=== PATIENT | female | born 1985 | race Caucasian/White ===

== ENCOUNTER → 2016-09-26 | Outpatient (CLI) | payer OTHER ==
[~2016-09-26] MED LIST: CITA40TA12 PO; LISI20TA3 PO; METH10CO PO
--- NOTE | 2016-09-26 14:24 | MAMMOGRAPHY REPORT ---
UNILATERAL LEFT DIGITAL DIAGNOSTIC MAMMOGRAM TOMOSYNTHESIS WITH CAD AND TARGETED LEFT ULTRASOUND: CLINICAL HISTORY: 30-year-old woman with a small palpable lump in the left lower inner quadrant that she noticed a few months ago. Family history of breast cancer = maternal and paternal grandmothers . No skin changes or nipple discharge. TECHNIQUE: Left breast tomosynthesis in addition to standard 2D mammography was performed. Current s nam was also evaluated with a Computer Aided Detection (CAD) system. COMPARISON: No prior exams were available for comparison. BREAST COMPOSITION: The tissue of the left breast is almost entirely fatty. FINDINGS: A triangular skin palpable marker overlies the lower inner middle one third of the left br east, denoting the palpable lump pointed out by the patient. There is a benign intramammary lymph n ode in the upper outer posterior left breast. No suspicious mass, architectural distortion or clust er of microcalcifications is seen. Targeted ultrasound was performed in the area of palpable concern pointed out by the patient (left 7 :00 breast, 4 cm from the nipple). On palpation, there is a discrete pea-sized firm mass. On ultra sound, normal predominantly fatty echotexture tissue is seen without a discrete solid or cystic mass . IMPRESSION: ACR BI-RADS CATEGORY 2: BENIGN, TARGETED ULTRASOUND ACR BI-RADS CATEGORY 2: BENIGN There is no mammographic or targeted sonographic evidence of malignancy. No suspicious mammographic or sonographic Normality is seen in the left 7:00 breast in the area of palpable lump pointed out b y the patient. Therefore, clinical follow-up is recommended, as biopsy of a clinically suspicious m ass should not be precluded by negative imaging. Also recommend annual screening mammography once a ge-appropriate. Approximately 10% of breast cancers are not detected with mammography. A negative mammographic repor t should not delay biopsy if a clinically suggestive mass is present. Darlene Davila M.D. ay/:09/26/2016 13:20:11 [employer] Operator: Darlin Cobian, [facility] letter sent: Normal 1/2 BI-RADS Code: ACR BI-RADS Category 2: Benign Ultrasound BI-RADS: ACR BI-RADS Category 2: Benign
== END | disposition home or self-care (01) ==
LOC: C.MAMM 10:08
PROVIDERS: ATTEND Family Medicine
DX: N63 Unspecified lump in breast (principal)

== ENCOUNTER 2017-06-28 09:42 | Emergency (ER) | payer OTHER ==
[~2017-06-28] VITALS: Ht 167.6 cm; Wt 135.0 kg
[2017-06-28 09:54] VITALS: TEMP 37.2; Ht 167.6 cm; Wt 135.0 kg
[2017-06-28] MEDS ORDERED: KETOROLAC TROMETHAMINE 30 MG/ML VIAL IV STA (10:41)
[2017-06-28 10:51] LABS: BASO % 0.3 %; BASO ABS # 0.02 K/uL (0-0.2); COMPLETE YES; EOS % 2.9 %; HEMATOCRIT 40.6 % (37-47); IG% 0.2 %; LYMPH % 35.2 %; LYMPH ABS # 2.31 K/uL (1.2-3.4); MEAN CELL VOLUME 89.8 fL (80-100); MEAN CORPUSCULAR HEMOGLOBIN 31.2 pg (25-34); MEAN CORPUSCULAR HGB CONC 34.7 g/dl (32-36); MEAN PLATELET VOLUME 10.1 fL (7.4-10.4); MONO % 6.1 %; NEUT % 55.3 %; PLATELET COUNT 195 K/uL (130-400); RED BLOOD COUNT 4.52 M/uL (4.2-5.4); WHITE BLOOD COUNT 6.56 K/uL (4.8-10.8)
[2017-06-28 10:56] LABS: MANUAL MICROSCOPIC REQUIRED? NO; REVIEW REQ? NO; URINE APPEARANCE CLEAR (CLEAR); URINE BILIRUBIN NEG (NEG); URINE COLOR YELLOW; URINE EPITHELIAL CELL AUTO >30 /lpf (0-5); URINE NITRITE NEG (NEG); URINE PH 7.5 (4.5-7.5); URINE SPECIFIC GRAVITY 1.023 (1.000-1.030); UROBILINOGEN NEG (NEG); ZZUR CULT IF INDIC CLEAN CATCH NO
[2017-06-28 11:05] LABS: ALT/SGPT 27 U/L (12-78); BLOOD UREA NITROGEN 10 mg/dl (7-18); BUN/CREATININE RATIO 11.9 (10-20); CALCIUM 8.8 mg/dl (8.5-10.1); CARBON DIOXIDE 28 mmol/L (21-32); CHLORIDE 105 mmol/L (98-107); CREATININE 0.86 mg/dl (0.60-1.20); GLUCOSE 117 mg/dl (70-99); POTASSIUM 4.2 mmol/L (3.5-5.1); SODIUM 138 mmol/L (136-145)
[2017-06-28 11:08] LABS: ALKALINE PHOSPHATASE 78 U/L (45-117); AST/SGOT 16 U/L (15-37)
--- NOTE | 2017-06-28 11:08 | DIAGNOSTIC IMAGING REPORT ---
R RIBS UNILATERAL WITH PA CHEST HISTORY: 31 years-old Female right anterior lateral rib tenderness acute right anterolateral rib pain without injury COMPARISON: Portal chest radiograph 05/03/2016 TECHNIQUE: Frontal view of the chest with 4 views of the right ribs FINDINGS: Cardiac mediastinal and hilar silhouettes are within normal limits. There is no pneumothorax, pleural effusion or focal airspace consolidation. No overt pulmonary edema. Surgical clips of the upper abdomen suggest prior cholecystectomy. No acute rib fracture identified. IMPRESSION: 1. No acute cardiopulmonary process. 2. No acute rib fracture identified. No pneumothorax. The above report was generated using voice recognition software. It may contain grammatical, syntax or spelling errors. Electronically signed by: Senthil Sanchez M.D. 06/28/2017 11:07 AM Dictated Date/Time: 06/28/2017 11:05 AM
[2017-06-28 13:44] VITALS: BP 142/93; PULSE 61; O2SAT 99
--- NOTE | 2017-06-28 17:40 | EMERGENCY ROOM VISIT NOTE ---
History Report prepared by Leandro: Kit Nichole Under the Supervision of: Dr. Álvaro Cassidy M.D. First contact with patient: 10:28 Chief Complaint: ABDOMINAL PAIN Stated Complaint: ABD. PAIN Nursing Triage Summary: Patient states she heard a pop in her right upper abdomen after bending over yesterday and the pain goes around to her back now. States pain increases with movement. Pt c/o nausea with pain. Denies v/d. History of Present Illness The patient is a 31 year old female who presents to the Emergency Room with complaints of constant RUQ abdominal pain beginning yesterday. She states that her pain began suddenly after bending over. She has a history of a cholecystectomy. The patient's pain is worsened with breathing. Her pain wraps around to her back. She describes her pain as "nagging", and occasionally "sharp ". Pt denies LOC, headache, fevers, chills, diaphoresis, visual changes, neck pain, chest pain, breathing difficulties, nausea, vomiting, melena, hematochezia , urinary symptoms, numbness, weakness, lymphadenopathy, rash, or other complaints. She denies chance of . Source of History: patient Onset: Yesterday Position: abdomen (RUQ) Quality: sharp (occasionally), other ("nagging") Timing: constant Modifying Factors (Worsening): breathing Associated Symptoms: + back pain Review of Systems See HPI for pertinent positives and negatives. A total of ten systems were reviewed and were otherwise negative. Past Medical & Surgical Medical Problems: (1) Hepatitis C Surgical Problems: (1) S/P cholecystectomy Family History Cancer Diabetes mellitus FHx: gallbladder disease FHx: lung disease Hypertension Kidney disease Kidney stones Seizures Social History Smoking Status: Current Every Day Smoker Alcohol Use: none Marital Status: in relationship Housing Status: lives with significant other Occupation Status: employed Current/Historical Medications Scheduled Citalopram Hydrobromide (Celexa), 40 MG PO DAILY Lisinopril (Prinivil), 20 MG PO DAILY Methadone Hcl (Methadone Hcl Intensol), 23 MG PO DAILY Allergies Coded Allergies: No Known Allergies (Unverified , 06/28/17) Physical Exam Vital Signs Date Time Temp Pulse Resp B/P (MAP) Pulse Ox O2 Delivery O2 Flow Rate FiO2 06/28/17 13:44 61 20 142/93 99 06/28/17 12:54 64 16 131/83 97 Room Air 06/28/17 11:21 78 06/28/17 11:12 64 17 143/92 96 Room Air 06/28/17 09:54 37.2 74 16 170/108 98 Room Air Physical Exam GENERAL: Awake, alert, well-appearing, in no distress HENT: Normocephalic, atraumatic. Oropharynx unremarkable. EYES: Normal conjunctiva. Sclera non-icteric. NECK: Supple. No nuchal rigidity. FROM. No JVD. RESPIRATORY: Clear to auscultation. CARDIAC: Regular rate, normal rhythm. Extremities warm and well perfused. Pulses equal. ABDOMEN: Soft, non-distended. No tenderness to palpation. No rebound or guarding. No masses. RECTAL: Deferred. MUSCULOSKELETAL: Chest examination reveals right posterior lateral rib and right anterior costal margin tenderness to palpation. The back is symmetrical on inspection without obvious abnormality. There is no CVA tenderness to palpation. No joint edema. LOWER EXTREMITIES: Calves are equal size bilaterally and non-tender. No edema. No discoloration. NEURO: Normal sensorium. No sensory or motor deficits noted. SKIN: No rash or jaundice noted. Medical Decision & Procedures ER Provider Diagnostic Interpretation: X-ray: Per my interpretation, radiologist review. R RIBS UNILATERAL WITH PA CHEST FINDINGS: Cardiac mediastinal and hilar silhouettes are within normal limits. There is no pneumothorax, pleural effusion or focal airspace consolidation. No overt pulmonary edema. Surgical clips of the upper abdomen suggest prior cholecystectomy. No acute rib fracture identified. IMPRESSION: 1. No acute cardiopulmonary process. 2. No acute rib fracture identified. No pneumothorax. The above report was generated using voice recognition software. It may contain grammatical, syntax or spelling errors. Electronically signed by: Senthil Sanchez M.D. 06/28/2017 11:07 AM Laboratory Results 06/28/17 10:35 Red Blood Count 4.52, Mean Corpuscular Volume 89.8, Mean Corpuscular Hemoglobin 31.2, Mean Corpuscular Hemoglobin Concent 34.7, Mean Platelet Volume 10.1, Neutrophils (%) (Auto) 55.3, Lymphocytes (%) (Auto) 35.2, Monocytes (%) (Auto) 6.1, Eosinophils (%) (Auto) 2.9, Basophils (%) (Auto) 0.3, Neutrophils # (Auto) 3.63, Lymphocytes # (Auto) 2.31, Monocytes # (Auto) 0.40, Eosinophils # (Auto) 0.19, Basophils # (Auto) 0.02 06/28/17 10:35 Test 06/28/17 10:17 06/28/17 10:35 Urine Color YELLOW Urine Appearance CLEAR (CLEAR) Urine pH 7.5 (4.5-7.5) Urine Specific [place] 1.023 (1.000-1.030) Urine Protein NEG (NEG) Urine Glucose (UA) NEG (NEG) Urine Ketones NEG (NEG) Urine Occult Blood NEG (NEG) Urine Nitrite NEG (NEG) Urine Bilirubin NEG (NEG) Urine Urobilinogen NEG (NEG) Urine Leukocyte Esterase TRACE (NEG) Urine WBC (Auto) 5-10 /hpf (0-5) Urine RBC (Auto) 0-4 /hpf (0-4) Urine Hyaline Casts (Auto) 1-5 /lpf (0-5) Urine Epithelial Cells (Auto) >30 /lpf (0-5) Urine Bacteria (Auto) NEG (NEG) Urine Test NEG (NEG) White Blood Count 6.56 K/uL (4.8-10.8) Red Blood Count 4.52 M/uL (4.2-5.4) Hemoglobin 14.1 g/dL (12.0-16.0) Hematocrit 40.6 % (37-47) Mean Corpuscular Volume 89.8 fL (80-100) Mean Corpuscular Hemoglobin 31.2 pg (25-34) Mean Corpuscular Hemoglobin Concent 34.7 g/dl (32-36) Platelet Count 195 K/uL (130-400) Mean Platelet Volume 10.1 fL (7.4-10.4) Neutrophils (%) (Auto) 55.3 % Lymphocytes (%) (Auto) 35.2 % Monocytes (%) (Auto) 6.1 % Eosinophils (%) (Auto) 2.9 % Basophils (%) (Auto) 0.3 % Neutrophils # (Auto) 3.63 K/uL (1.4-6.5) Lymphocytes # (Auto) 2.31 K/uL (1.2-3.4) Monocytes # (Auto) 0.40 K/uL (0.11-0.59) Eosinophils # (Auto) 0.19 K/uL (0-0.5) Basophils # (Auto) 0.02 K/uL (0-0.2) RDW Standard Deviation 40.5 fL (36.4-46.3) RDW Coefficient of Variation 12.3 % (11.5-14.5) Immature Granulocyte % (Auto) 0.2 % Immature Granulocyte # (Auto) 0.01 K/uL (0.00-0.02) Anion Gap 4.0 mmol/L (3-11) Est Creatinine Clear Calc Drug Dose 134.0 ml/min Estimated GFR () 104.3 Estimated GFR (Non- 90.0 BUN/Creatinine Ratio 11.9 (10-20) Calcium Level 8.8 mg/dl (8.5-10.1) Total Bilirubin 0.3 mg/dl (0.2-1) Direct Bilirubin < 0.1 mg/dl (0-0.2) Aspartate Amino Transf (AST/SGOT) 16 U/L (15-37) Alanine Aminotransferase (ALT/SGPT) 27 U/L (12-78) Alkaline Phosphatase 78 U/L (45-117) Total Protein 7.3 gm/dl (6.4-8.2) Albumin 3.6 gm/dl (3.4-5.0) Lipase 137 U/L (73-393) Laboratory results reviewed by me Medications Administered Medications (Trade) Dose Ordered Sig/Deion Route Start Time Stop Time Status Last Admin Dose Admin Ketorolac Tromethamine (Toradol Inj) 15 mg NOW STAT IV 06/28/17 10:41 06/28/17 10:42 DC 06/28/17 11:10 15 MG ED Course 1036: The patient was evaluated in room A4B. A complete history and physical exam was performed. 1041: Ordered Toradol Inj 15 mg IV. 1322: I reevaluated the patient. Discussed results and discharge instructions: she verbalized understanding and agreement. The patient is ready for discharge. Medical Decision Triage Nursing notes reviewed. The patient's presentation and history were concerning for right anterolateral rib and right upper quadrant pain Etiologies such as rib fracture, rib contusion, gastrointestinal, musculoskeletal, pulmonary embolism, pneumonia, pneumothorax, infections, cardiac ischemia, aortic dissection, as well as others were entertained. The patient was evaluated. Clinical she was doing well. Her symptoms were reproducible. This seems very musculoskeletal as she bent over and felt a pop in the right anterolateral ribs. Vital signs stable. She can take a deep breath well. X-ray imaging was performed. No obvious rib fracture or underlying lung issue was noted. She had a benign abdominal examination. She has a prior cholecystectomy. I discussed conservative management with the patient and she felt very comfortable. She worsens in any way she will be back. By the evaluation outlined above other emergent etiologies such as those listed in the differential, as well as others, were deemed relatively unlikely. The patient was educated about the findings as listed above. All questions were answered and the patient was pleased with the treatment. Return instructions were outlined and the patient was discharged in stable condition. The patient was referred to her PCP for follow-up for a recheck of the current condition. Medication Reconcilliation Current Medication List: was personally reviewed by me Blood Pressure Screening Patient's blood pressure: Elevated blood pressure Blood pressure disposition: Referred to PCP Impression Primary Impression: Rib pain on right side Scribe Attestation The scribe's documentation has been prepared under my direction and personally reviewed by me in its entirety. I confirm that the note above accurately reflects all work, treatment, procedures, and medical decision making performed by me. Departure Information Dispostion Home / Self-Care Referrals Elisa Solis MD (PCP) Forms Call Back Authorization, HOME CARE DOCUMENTATION FORM, IMPORTANT VISIT INFORMATION Patient Instructions [facility] Additional Instructions Ibuprofen(Motrin, Advil) may be used for fever or pain. Use 600mg every six hours as needed. Take with food. Avoid using more than 2400mg in a 24 hour period. Do not use 2400mg per day for more than three consecutive days without physician direction. Prolonged inappropriate use can lead to stomach upset or ulcers. (AND/OR) Acetaminophen(Tylenol) may be used for fever or pain. Use 1000mg every six hours as needed. Avoid using more than 4000mg in a 24 hour period. Rest and drink plenty of fluids as tolerated. Avoid heavy lifting or anything that worsens the pain. Continue current medications. Return to the ER immediately for worsening or persistent rib pain, abdominal pain, vomiting, fevers, chest pains, difficulty breathing, black or bloody stools, worsening of your condition, or as needed. Follow up with your primary physician in 2-3 days for a recheck of your current condition.
== END 2017-06-28 13:46 | disposition home or self-care (01) ==
LOC: C.EDB 09:43 → C.EDA 13:46
DX: R07.81 Pleurodynia (principal); R10.11 Right upper quadrant pain; F17.210 Nicotine dependence, cigarettes, uncomplicated

== ENCOUNTER 2023-01-16 10:18 | Inpatient (IN) ==
--- NOTE | 2023-01-16 10:52 | XRay Report ---
SINGLE VIEW CHEST CLINICAL HISTORY: Dyspnea FINDINGS: An AP, portable, upright chest radiograph is compared to study dated 06/28/2017. The examin ation is degraded by portable technique, large body habitus, and apical lordotic positioning. The car diomediastinal silhouette is unremarkable. The lungs and pleural spaces are clear. No pneumothorax is seen. The bony thorax is grossly intact. IMPRESSION: No active disease in the chest. ACT 112: Negative or not required by law. Electronically signed by: Kaleb Gordon M.D. 01/16/2023 10:51 AM
[2023-01-16] MEDS ORDERED: methylPREDNISolone 125 MG/2 ML VIAL IV STA (11:02)
[2023-01-16] MEDS ORDERED: ALBUT/IPRATROP 3MG/0.5MG NEB 3 ML VIAL NEB STA (11:02)
--- NOTE | 2023-01-16 11:12 | Emergency Department Note ---
Impression & Plan SOB (shortness of breath), Pulmonary emboli, Wheezing, Heart murmur ED Provider Note NAME: KEE LOPEZ AGE: 37 SEX: F : 1985 ARRIVES VIA: Ambulance INFORMANT: [Patient] ED PROVIDER(S): [Kaleb Avendano MD] CHIEF COMPLAINT: Shortness of breath HISTORY OF PRESENT ILLNESS: The patient is a 37-year-old female whose had 4 days of some flulike symptoms and cough. She has felt somewhat short of breath. She had a runny nose, headache and some tightness in her chest. Last evening, she developed some pain on the left side of her chest near the breast that radiates to the back. It is pleuritic in nature. Patient was given a nebulizer treatment by EMS, this did make her feel somewhat better. The patient had a fever yesterday, none today. No known sick contacts. No history of lung disease. No history of previous PE or DVT, no history of this diagnosis in her family. She has not had a long trip by car plane or train. PMHx/PSHx: See Below SOCIAL HISTORY: See Below. PHYSICAL EXAM: GENERAL: Patient is in no acute distress. HEENT: No acute trauma, normocephalic atraumatic, mucous membranes moist, no nasal congestion. NECK: No stridor, no adenopathy, no meningismus, trachea is midline. LUNGS: Diminished breath sounds with wheezing bilaterally, no obvious respiratory distress, no crackles. HEART: 2/6 systolic murmur, regular rate and rhythm. ABDOMEN: Soft, nontender, bowel sounds positive, no peritonitis. EXTREMITIES: No cyanosis, mild bilateral pedal edema, full range of motion of all the joints without pain or difficulty, no signs for acute trauma. NEUROLOGIC: Oriented x 3, no acute motor or sensory deficits, no focal weakness. SKIN: No rash, no jaundice, no diaphoresis. DIFFERENTIAL DIAGNOSIS: Bronchitis or pneumonia, pneumothorax, SC, musculoskeletal pain, pleurisy, PE, aortic dissection, among others. EMERGENCY DEPARTMENT COURSE/PROCEDURES: Prior/Outside records reviewed: EMS notes. ECG per my interpretation: Indication was chest pain. The ECG shows a normal sinus rhythm with a rate of 88. There is some baseline artifact. No ST elevation, no PVCs. The QTc is 425. Continuous Cardiac Monitoring per my interpretation: An order was placed for continuous cardiac monitoring. The monitor shows a rate of 89 with normal sinus rhythm. Critical Care Note: I have personally spent 45 minutes of critical care time in the direct management of this patient. This includes bedside care, interpretation of diagnostic studies, and testing, discussion with consultants, patient, and family members, and other required patient management activities. This 45 minutes is in excess of all separately billable procedures. MEDICAL DECISION MAKING: There is no leukocytosis or concerning anemia. There is a normal platelet count. No coagulopathy. D-dimer was elevated making PE more likely. No renal failure or significant electrolyte abnormality. No concerning liver enzyme elevation. ECG shows a normal sinus rhythm, no ischemia or dysrhythmia. Cardiac enzyme testing x1 is not consistent with acute cardiac injury. COVID test returned negative. Chest x-ray per my review did not show pneumonia or pneumothorax, I did not see any CHF. Chest CT shows multiple bilateral pulmonary emboli with some heart strain. On exam, the patient had diminished breath sounds with a cardiac murmur. She was wheezing. The patient received a DuoNeb, she was given IV Solu-Medrol. With the findings of PE, she was given an IV heparin bolus and placed on a heparin drip. I spoke to the patient about her findings, given the CT results, given the cardiac strain noted, I do think hospitalization is warranted. I spoke with the patient and case management, the on-call hospitalist was consulted. DISPOSITION: The patient's findings warrant a hospital stay. Past Med/Surg History Medical History Bipolar disorder Depression Hepatitis C Hypertension Surgical History (Updated 02/23/19 @ 15:20 by Gilbert Gaxiola) History of cholecystectomy History of tonsillectomy Family History (Updated 02/23/19 @ 15:22 by Gilbert Gaxiola) Mother Cardiac disorder Depression Diabetes Hypertension Kidney disease Lung disease Father Diabetes Kidney stones Grandmother Breast cancer Uterus cancer Other No pertinent family history Prostate cancer Denies family history of Ovarian cancer Myocardial infarction Colorectal cancer Social History Smoking Status: Current every day smoker Age Started Using Tobacco: 16; packs per day: 1; Second Hand Exposure: Yes; Hx Alcohol Use: Yes Hx Substance Use: Yes (Suboxone) Last Used Substance Other:: quit 2011 Preferred Language: [place] Communication Ability: Effective Visual Impairment: No Limitations Hearing Ability: Normal marital status: Single Current Living Situation Comment: with parents and fiance current occupational status: employed 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 Feels Safe at Home: Yes Dental Care, Regularly: Yes Physical Activity Frequency: Daily Seatbelt Use: always Allergies Allergies Allergy/AdvReac Type Severity Reaction Status Date / Time naloxone AdvReac Ligjht Verified 01/16/23 14:18 headed, gi-upset Home Meds Home Medications Medication Instructions Recorded Confirmed Mucinex Tab 1 tab PO Q4 PRN Congestion 01/16/23 01/16/23 buprenorphine HCl 8 mg sublingual 2 mg sublingual QID 01/16/23 01/16/23 tablet lisinopril 10 mg tablet 10 mg PO DAILY 01/16/23 01/16/23 Results & Data (ED) Vital Signs Vital Signs - 24 hr 01/16/23 10:33 01/16/23 10:33 01/16/23 10:47 Temperature 37.0 C Temperature Source Oral Pulse Rate Pulse Rate [Left] Pulse Rate from SpO2 Sensor Respiratory Rate Respiratory Effort / Characteristics Respiratory Depth Normal Respiratory Pattern Regular Blood Pressure Blood Pressure [Right Arm] Blood Pressure Mean Blood Pressure Mean [Right Arm] Blood Pressure Position [Right Arm] Pulse Oximetry 98 Oxygen Delivery Method Room Air Sepsis Recent Fever Within 48 Hours Yes Sepsis New/Unexplained Change in Mental Status No Sepsis Action Taken by Nursing No Action Required 01/16/23 10:51 01/16/23 10:29 01/16/23 11:00 Temperature Temperature Source Pulse Rate 81 Pulse Rate [Left] 81 Pulse Rate from SpO2 Sensor 82 Respiratory Rate 22 17 Respiratory Effort / Characteristics Non-Labored Respiratory Depth Normal Respiratory Pattern Regular Blood Pressure 166/93 H Blood Pressure [Right Arm] 152/103 H Blood Pressure Mean 117 Blood Pressure Mean [Right Arm] 119 Blood Pressure Position [Right Arm] Lying Pulse Oximetry 98 98 98 Oxygen Delivery Method Room Air Room Air Room Air Sepsis Recent Fever Within 48 Hours Sepsis New/Unexplained Change in Mental Status Sepsis Action Taken by Nursing 01/16/23 11:30 01/16/23 11:46 01/16/23 12:00 Temperature Temperature Source Pulse Rate 77 77 79 Pulse Rate [Left] Pulse Rate from SpO2 Sensor 77 Respiratory Rate 17 17 Respiratory Effort / Characteristics Respiratory Depth Respiratory Pattern Blood Pressure 134/69 140/71 Blood Pressure [Right Arm] Blood Pressure Mean 90 94 Blood Pressure Mean [Right Arm] Blood Pressure Position [Right Arm] Pulse Oximetry 98 94 Oxygen Delivery Method Room Air Room Air Sepsis Recent Fever Within 48 Hours Sepsis New/Unexplained Change in Mental Status Sepsis Action Taken by Nursing 01/16/23 12:30 Temperature Temperature Source Pulse Rate 76 Pulse Rate [Left] Pulse Rate from SpO2 Sensor 76 Respiratory Rate 17 Respiratory Effort / Characteristics Respiratory Depth Respiratory Pattern Blood Pressure 137/76 Blood Pressure [Right Arm] Blood Pressure Mean 96 Blood Pressure Mean [Right Arm] Blood Pressure Position [Right Arm] Pulse Oximetry 92 Oxygen Delivery Method Room Air Sepsis Recent Fever Within 48 Hours Sepsis New/Unexplained Change in Mental Status Sepsis Action Taken by Long Term Medications Current Medication List: was personally reviewed by me Laboratory Data Attestation: I reviewed the patient's lab results. 01/16/23 11:11 01/16/23 11:11 Lab Results 01/16/23 01/16/23 01/16/23 Range/Units 11:11 11:11 11:11 WBC 8.98 (4.8-10.8) K/ul RBC 4.58 (4.20-5.40) M/uL Hgb 14.3 (12.0-16.0) g/dl Hct 40.8 (37.0-47.0) % MCV 89.1 (80.0-100.0) fL MCH 31.2 (25.0-34.0) pg MCHC 35.0 (32.0-36.0) g/dL RDW Std Deviation 38.6 (36.4-46.3) fL RDW Coeff of Rigo 12.0 (11.5-14.5) % Plt Count 143 (130-400) K/uL MPV 10.6 (9.4-12.4) fL Immature Gran % (Auto) 0.6 % Neut % (Auto) 80.9 % Lymph % (Auto) 11.7 % [place] % (Auto) 5.6 % Eos % (Auto) 0.9 % Baso % (Auto) 0.3 % Neut # (Auto) 7.27 H (1.40-6.50) K/uL Lymph # (Auto) 1.05 L (1.2-3.4) K/uL [place] # (Auto) 0.50 (0.11-0.59) K/uL Eos # (Auto) 0.08 (0-0.50) K/uL Baso # (Auto) 0.03 (0-0.2) K/uL Immature Gran # (Auto) 0.05 (0.01-0.20) K/uL PT (9.0-12.0) Seconds INR (0.9-1.1) APTT (21.0-31.0) Seconds PTT Ratio D-Dimer 3130 H* (0-500) ug/L FEU Sodium 135 L (136-145) mmol/L Potassium 4.2 (3.5-5.1) mmol/L Chloride 104 (98-107) mmol/L Carbon Dioxide 22 (21-32) mmol/L Anion Gap 9 (3-11) BUN 11 (6-23) mg/dl Creatinine 0.69 (0.6-1.2) mg/dl Est Cr Clr Drug Dosing 164.1 ml/min Est GFR ( Amer) 128.9 ml/min Est GFR (Non-Af Amer) 111.2 ml/min BUN/Creatinine Ratio 15.9 (10-20) Glucose 126 H (70-99(Fasting)) mg/dl Calcium 9.1 (8.6-10.3) mg/dl Total Bilirubin 0.8 (0.2-1.0) mg/dl AST 13 (13-39) U/L ALT 15 (7-52) U/L Alkaline Phosphatase 83 (34-104) U/L Troponin I High Sens (0-14) pg/ml Total Protein 7.9 (6.0-8.3) gm/dl Albumin 4.4 (3.4-5.0) gm/dl Globulin 3.5 (2.5-4.0) gm/dl Albumin/Globulin Ratio 1.3 (0.9-2) SARS-CoV-2 (PCR) (Negative) 01/16/23 01/16/23 01/16/23 Range/Units 11:11 11:11 Unknown WBC (4.8-10.8) K/ul RBC (4.20-5.40) M/uL Hgb (12.0-16.0) g/dl Hct (37.0-47.0) % MCV (80.0-100.0) fL MCH (25.0-34.0) pg MCHC (32.0-36.0) g/dL RDW Std Deviation (36.4-46.3) fL RDW Coeff of Rigo (11.5-14.5) % Plt Count (130-400) K/uL MPV (9.4-12.4) fL Immature Gran % (Auto) % Neut % (Auto) % Lymph % (Auto) % [place] % (Auto) % Eos % (Auto) % Baso % (Auto) % Neut # (Auto) (1.40-6.50) K/uL Lymph # (Auto) (1.2-3.4) K/uL [place] # (Auto) (0.11-0.59) K/uL Eos # (Auto) (0-0.50) K/uL Baso # (Auto) (0-0.2) K/uL Immature Gran # (Auto) (0.01-0.20) K/uL PT 10.6 (9.0-12.0) Seconds INR 1.0 (0.9-1.1) APTT 26.0 (21.0-31.0) Seconds PTT Ratio 0.9 D-Dimer (0-500) ug/L FEU Sodium (136-145) mmol/L Potassium (3.5-5.1) mmol/L Chloride (98-107) mmol/L Carbon Dioxide (21-32) mmol/L Anion Gap (3-11) BUN (6-23) mg/dl Creatinine (0.6-1.2) mg/dl Est Cr Clr Drug Dosing ml/min Est GFR ( Amer) ml/min Est GFR (Non-Af Amer) ml/min BUN/Creatinine Ratio (10-20) Glucose (70-99(Fasting)) mg/dl Calcium (8.6-10.3) mg/dl Total Bilirubin (0.2-1.0) mg/dl AST (13-39) U/L ALT (7-52) U/L Alkaline Phosphatase (34-104) U/L Troponin I High Sens < 2.3 (0-14) pg/ml Total Protein (6.0-8.3) gm/dl Albumin (3.4-5.0) gm/dl Globulin (2.5-4.0) gm/dl Albumin/Globulin Ratio (0.9-2) SARS-CoV-2 (PCR) NEGATIVE (Negative) Administered Medications Heparin Sodium/Dextrose (Heparin Sodium/Dextrose) 25,000 units in 500 mls @ 20 mls/hr IV .Q24H RUPA; Protocol Stop: 02/15/23 13:44 Last Admin: 01/16/23 14:01 Dose: 1,000 units/hr, 20 mls/hr Documented By: TERESA Co-signed By: MURRAY Discontinued Medications Albuterol (Albut/Ipratrop 3mg/0.5mg Neb 3 Ml Vial) 3 ml NEB NOW STA; Protocol Stop: 01/16/23 11:03 Last Admin: 01/16/23 11:15 Dose: 3 ml Documented By: LOU Heparin Sodium (Porcine) (Heparin Sod (Porcine) 1000 Unit/Ml) 4,000 units IV NOW ONE Stop: 01/16/23 14:01 Last Admin: 01/16/23 14:01 Dose: 4,000 units Documented By: TERESA Co-signed By: MURRAY Ioversol (Optiray 320 500ml) 114 ml IV ONCE ONE Stop: 01/16/23 13:00 Last Admin: 01/16/23 12:53 Dose: 114 ml Documented By: JANET Methylprednisolone (Methylprednisolone 125 Mg/2 Ml Vial) 60 mg IV NOW STA Stop: 01/16/23 11:03 Last Admin: 01/16/23 11:15 Dose: 60 mg Documented By: LOU Imaging Data Radiologist's Impression: Chest X-Ray 01/16/23 10:29 SINGLE VIEW CHEST CLINICAL HISTORY: Dyspnea FINDINGS: An AP, portable, upright chest radiograph is compared to study dated 06/28/2017. The examination is degraded by portable technique, large body habitus, and apical lordotic positioning. The cardiomediastinal silhouette is unremarkable. The lungs and pleural spaces are clear. No pneumothorax is seen. The bony thorax is grossly intact. IMPRESSION: No active disease in the chest. ACT 112: Negative or not required by law. Electronically signed by: Kaleb Gordon M.D. 01/16/2023 10:51 AM Chest CTA 01/16/23 12:24 CT angio chest PE protocol CLINICAL HISTORY: PE TECHNIQUE: Multidetector row helical CT of the chest was performed with angiographic protocol. Coronal and sagittal reformations were obtained. Coronal and sagittal MIPS were obtained from the axial data set and were submitted for review. Automated dose lowering techniques and/or adjustment according to patient size were utilized for this exam. CT DOSE: 871.91 mGy.cm Comparison: None available at the time of this dictation. FINDINGS: Lungs and pleura: Atelectasis is in the left lower lung. There is a 4 mm nodule in the right upper lobe (series 4 image 137) Heart and pericardium: There is flattening of the interventricular septum and prominence of the right ventricle. Vessels: Numerous segmental and subsegmental pulmonary emboli are seen most prominently in the right lower lobe with involvement of the right upper and left lower lobes as well. Pulmonary trunk measures 36 mm in diameter. Mediastinum and vika: Unremarkable. Chest wall and lower neck: Unremarkable. Abdomen: Unremarkable. Bones: Degenerative changes in the thoracic spine. IMPRESSION: Multiple segmental and subsegmental pulmonary emboli are seen with pulmonary hypertension and suggestion of right heart strain. ACT 112: Negative or not required by law. Electronically signed by: Uday Pino M.D. 01/16/2023 1:10 PM Discharge Plan Visit Data Chief Complaint: Shortness of Breath/Dyspnea Stated Complaint: FLANK PAIN, SOB ED Provider: Kaleb Avendano Discharge Problem: SOB (shortness of breath), Pulmonary emboli, Wheezing, Heart murmur Patient Disposition: Admitted As Inpatient Condition: Fair Forms [facility] Prescriptions Prescriptions: No Action lisinopril 10 mg Tablet 10 mg PO DAILY buprenorphine HCl 8 mg tablet, sublingual 2 mg SUBLINGUAL QID Rx Instructions: Quarters the tablet Mucinex Tab 1 tab PO Q4 PRN (Reason: Congestion) Referrals Referrals: [facility]rell[email or web address] [Outside Practitioners] -
[2023-01-16 11:54] LABS: Basophils # (auto) 0.03 K/uL (0-0.2); Basophils % (auto) 0.3 %; Eosinophils # (auto) 0.08 K/uL (0-0.50); Eosinophils % (auto) 0.9 %; Hematocrit (blood only) 40.8 % (37.0-47.0); Hemoglobin 14.3 g/dl (12.0-16.0); Immature Granulocytes # (auto) 0.05 K/uL (0.01-0.20); Immature Granulocytes % (auto) 0.6 %; Lymphocytes # (auto) 1.05 K/uL (1.2-3.4); Lymphocytes % (auto) 11.7 %; Mean Corpuscular Hemoglobin 31.2 pg (25.0-34.0); Mean Corpuscular Volume 89.1 fL (80.0-100.0); Mean Platelet Volume 10.6 fL (9.4-12.4); Monocytes % (auto) 5.6 %; Neutrophils # (auto) 7.27 K/uL (1.40-6.50); Neutrophils % (auto) 80.9 %; Platelet Count 143 K/uL (130-400); RDW Standard Deviation 38.6 fL (36.4-46.3); Red Blood Count 4.58 M/uL (4.20-5.40); White Blood Count 8.98 K/ul (4.8-10.8)
[2023-01-16 12:16] LABS: D Dimer 3130 ug/L FEU (0-500)
[2023-01-16 12:19] LABS: Albumin Level 4.4 gm/dl (3.4-5.0); Bilirubin,Total 0.8 mg/dl (0.2-1.0); Calcium 9.1 mg/dl (8.6-10.3); Potassium 4.2 mmol/L (3.5-5.1)
[2023-01-16 12:25] LABS: Albumin Globulin Ratio 1.3 (0.9-2); BUN Creatinine Ratio 15.9 (10-20); Creatinine Clr Calc Pharmacy 164.1 ml/min; Est GFR (African American) 128.9 ml/min; Est GFR (Non-African American) 111.2 ml/min; Globulin 3.5 gm/dl (2.5-4.0); Total Protein 7.9 gm/dl (6.0-8.3)
[2023-01-16] MEDS ORDERED: OPTIRAY 320 500ml IV ONE (12:59)
--- NOTE | 2023-01-16 13:11 | CT Scan Report ---
CT angio chest PE protocol CLINICAL HISTORY: PE TECHNIQUE: Multidetector row helical CT of the chest was performed with angiographic protocol. Brown l and sagittal reformations were obtained. Coronal and sagittal MIPS were obtained from the axial anil a set and were submitted for review. Automated dose lowering techniques and/or adjustment according to patient size were utilized for this exam. CT DOSE: 871.91 mGy.cm Comparison: None available at the time of this dictation. FINDINGS: Lungs and pleura: Atelectasis is in the left lower lung. There is a 4 mm nodule in the right upper lo be (series 4 image 137) Heart and pericardium: There is flattening of the interventricular septum and prominence of the right ventricle. Vessels: Numerous segmental and subsegmental pulmonary emboli are seen most prominently in the right lower lobe with involvement of the right upper and left lower lobes as well. Pulmonary trunk measures 36 mm in diameter. Mediastinum and vika: Unremarkable. Chest wall and lower neck: Unremarkable. Abdomen: Unremarkable. Bones: Degenerative changes in the thoracic spine. IMPRESSION: Multiple segmental and subsegmental pulmonary emboli are seen with pulmonary hypertension and suggest ion of right heart strain. ACT 112: Negative or not required by law. Electronically signed by: Uday Pino M.D. 01/16/2023 1:10 PM
[2023-01-16] MEDS ORDERED: Heparin IV Adult Wt-Based Low-Dose WITH Bolus Protocol IV STA (13:20)
[2023-01-16] MEDS ORDERED: Heparin IV Adult Wt-Based Low-Dose WITH Bolus Protocol IV SCH (13:30)
[2023-01-16] MEDS ORDERED: HEPARIN SOD (PORCINE) 1000 UNIT/ML IV ONE ×3 (13:36→22:00)
--- NOTE | 2023-01-16 13:55 | History & Physical Report ---
Date of Service January 16, 2023 Assessment & Plan (1) Pulmonary emboli: (2) SOB (shortness of breath): Plan: -Admit to PCU -Continue on heparin drip, low dose bolus for now - consider transition to DOAC tomorrow -Doppler ultrasound bilat LE ordered, pending, specifically noted swelling and hx of pain in the left lower extremity -CT of the chest has been reviewed showing segmental and subsegmental PE bilaterally -Right-sided heart strain to be evaluated with echo -Consult pulm for heavy clot burden (3) Hepatitis C: Plan: - Hx of such from 2014 - outpt epic result reviewed showing HCV Ab reactive and ratio of 21.30 --- consider adding Hep C Ab while here to test - discussed following up with PCP or hepatology as outpatient after her acute hospital stay - pt is in agreement - Pt had HIV ag/Ab screen on 03/04/20 which was negative - hx of IVDA with heroin, clean for 2 years and is currently on Subutex 8 mg BID and splits this up to being 4 mg QID. - Will ask pharmacy to verify med. PDMP reviewed by myself. (4) Hypertension: Plan: - No longer on antihypertensive medication - discussed weight loss and diet at bedside - BP is fluctuating but has a small cuff on her forearm. (5) Depression: Plan: - Pt is not longer on antidepressant medication (6) Wheezing: Plan: - hx of seasonal allergies, continue supportive care if needed DVT ppx: heparin gtt CODE: Full code Dispo: From home, likely to remain in the hospital x 1 day A total of 76 minutes were spent with greater than 50% of that time face to face with the patient, personally reviewing all current laboratories, imaging studies, past medication reconciliation, outpatient chart review, and discussion with specialists to collaborate care for the patient with attending. Please see attending documentation for corrections and/or additions. (7) Morbid obesity: History of Present Illness Primary Care Provider: NO PCP This is a 37-year-old female with PMHx of drug abuse, acute hepatitis C, HTN, MDD, morbid obesity with a BMI of 51.2, who presents to the hospital with acute onset of shortness of breath x 3 to 4 days. Pt reports having complaints of allergy-like symptoms, sore throat runny nose, watery eyes for the past 3 days. She notes that last night she developed worsening shortness of breath and felt a left-sided chest pain under her left breast which went through to her back with deep breaths. She reports about 1 month ago was having issues with the left calf with tenderness and pain. Since then she has noticed increased swelling of her left calf, left ankle and foot. She reports that sometimes her shoes do not fit located they should. She denies any fevers, chills or sweats. Previously patient used IV heroin, clean x2 years, had Subutex 8 g tablets twice daily which she splits and takes 4 mg 4 times per day. Regarding her hx of hepatitis C she states her body cleared it on its own. She does not routinely follow with a GI doctor or systems eng. Patient smokes actively 1 pack/day and has since age 19. She is not currently on any control agents. Patient's last menst rual cycle was approximately 1 month ago. Family Hx: Reports her father was 61 and had a DVT, and mother is 66 and recently had DVT within the past year but notes that she is bedbound. Social Hx: Smokes 1 ppd x 18-19 years. Pt reports she lives with boyfriend, sexually active. Has been on subutex for about 2 years. Pt reports previous drug history of using, heroin IV. No alcohol use. She is found to have bilateral segmental and subsegmental pulmonary emboli, with right-sided heart strain. Patient has been started on heparin drip. Allergies Allergy/AdvReac Type Severity Reaction Status Date / Time naloxone AdvReac Ligjht Verified 01/16/23 14:18 headed, gi-upset Home Medications Medication Instructions Recorded Confirmed Type buprenorphine HCl 8 mg sublingual 4 mg sublingual QID 01/16/23 01/16/23 History tablet Past Med/Surg History Medical History Bipolar disorder Depression Hepatitis C Hypertension Surgical History History of cholecystectomy History of tonsillectomy Family History Mother Cardiac disorder Depression Diabetes Hypertension Kidney disease Lung disease Father Diabetes Kidney stones Grandmother Breast cancer Uterus cancer Other No pertinent family history Prostate cancer Denies family history of Ovarian cancer Myocardial infarction Colorectal cancer Social History Smoking Status: Current every day smoker Age Started Using Tobacco: 16; packs per day: 1; Cigarettes Per Day: 1-1 1/2 ppd; Second Hand Exposure: Yes; Do You Dip or Chew Tobacco: No; Hx Alcohol Use: No Hx Substance Use: No Preferred Language: Nepalese Communication Ability: Effective Visual Impairment: No Limitations Hearing Ability: Normal Caustic Purification Operator Required: No Beliefs That Will Affect Care: None marital status: Single Current Living Situation: Family Current Living Situation Comment: with parents and fiance current occupational status: employed 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 Other Information That Helps Us Care for You: No Feels Safe at Home: Yes Safety Concerns: Feels Safe At This Time Dental Care, Regularly: Yes Physical Activity Frequency: Daily Seatbelt Use: always Assistive Devices: Glasses Review of Systems Review of Systems: Constitutional: No fever, sweats or chills Eyes: No diplopia, no worsening or blurred vision ENT: normal hearing, no trouble swallowing Respiratory: As per HPI, no cough, sputum, dyspnea at rest or on exertion + pain with deep breaths Cardiovascular: No chest pain, tightness or palpitations Abdomen: No pain, nausea, vomiting, diarrhea or constipation Musculoskeletal: No joint pain, + left sided calf pain and swelling as per HPI Neurologic: No weakness, numbness/tingling, or balance problems Psychiatric: Hx of depression no longer on medication Skin: No rash or itch Physical Exam Physical Exam: General: awake, alert, no apparent distress, + morbidly obese BMI 51.2 Head: Normocephalic, atraumatic ENT: PERRL, EOMI, no pharyngeal exudate, mucous membranes moist Chest: Clear to auscultation, on room air, no adventitious breath sounds Cardiac: Regular rate and rhythm, no murmur, no JVD, normal peripheral pulses, good capillary refill Abdominal: NABS x 4 quadrants, soft, nondistended, nontender to palpation, no rebound or guarding Extremities: Normal inspection, + left-sided peripheral edema in ankle, no erythema, calfs nontender to palpation Psych: Normal mood and affect Neuro: AAO x 3, strength intact bilaterally and rated 5/5, no motor deficits, speech is clear, no peripheral sensory deficits Results & Data Results & Data Vital Signs (Past 12 Hours) Vital Signs Temp Pulse Pulse Resp BP BP Pulse Ox 01/16/23 12:30 76 17 137/76 92 01/16/23 12:00 79 17 140/71 94 01/16/23 11:46 77 01/16/23 11:30 77 17 134/69 98 01/16/23 11:00 81 17 166/93 H 98 01/16/23 10:29 98 01/16/23 10:51 81 22 152/103 H 98 01/16/23 10:47 98 01/16/23 10:33 37.0 C O2 Del Method 01/16/23 12:30 Room Air 01/16/23 12:00 Room Air 01/16/23 11:46 01/16/23 11:30 Room Air 01/16/23 11:00 Room Air 01/16/23 10:29 Room Air 01/16/23 10:51 Room Air 01/16/23 10:47 Room Air 01/16/23 10:33 Laboratory Results 01/16/23 01/16/23 01/16/23 Unknown 11:11 11:11 WBC RBC Hgb Hct MCV MCH MCHC RDW Std Deviation RDW Coeff of Rigo Plt Count MPV Immature Gran % (Auto) Neut % (Auto) Lymph % (Auto) Dickens % (Auto) Eos % (Auto) Baso % (Auto) Neut # (Auto) Lymph # (Auto) Dickens # (Auto) Eos # (Auto) Baso # (Auto) Immature Gran # (Auto) D-Dimer Sodium 135 L Potassium 4.2 Chloride 104 Carbon Dioxide 22 Anion Gap 9 BUN 11 Creatinine 0.69 Est Cr Clr Drug Dosing 164.1 Est GFR ( Amer) 128.9 Est GFR (Non-Af Amer) 111.2 BUN/Creatinine Ratio 15.9 Glucose 126 H Calcium 9.1 Total Bilirubin 0.8 AST 13 ALT 15 Alkaline Phosphatase 83 Troponin I High Sens < 2.3 Total Protein 7.9 Albumin 4.4 Globulin 3.5 Albumin/Globulin Ratio 1.3 SARS-CoV-2 (PCR) NEGATIVE 01/16/23 01/16/23 11:11 11:11 WBC 8.98 RBC 4.58 Hgb 14.3 Hct 40.8 MCV 89.1 MCH 31.2 MCHC 35.0 RDW Std Deviation 38.6 RDW Coeff of Rigo 12.0 Plt Count 143 MPV 10.6 Immature Gran % (Auto) 0.6 Neut % (Auto) 80.9 Lymph % (Auto) 11.7 Dickens % (Auto) 5.6 Eos % (Auto) 0.9 Baso % (Auto) 0.3 Neut # (Auto) 7.27 H Lymph # (Auto) 1.05 L Dickens # (Auto) 0.50 Eos # (Auto) 0.08 Baso # (Auto) 0.03 Immature Gran # (Auto) 0.05 D-Dimer 3130 H* Sodium Potassium Chloride Carbon Dioxide Anion Gap BUN Creatinine Est Cr Clr Drug Dosing Est GFR ( Amer) Est GFR (Non-Af Amer) BUN/Creatinine Ratio Glucose Calcium Total Bilirubin AST ALT Alkaline Phosphatase Troponin I High Sens Total Protein Albumin Globulin Albumin/Globulin Ratio SARS-CoV-2 (PCR) Diagnostic Findings Chest X-Ray 01/16/23 10:29 SINGLE VIEW CHEST CLINICAL HISTORY: Dyspnea FINDINGS: An AP, portable, upright chest radiograph is compared to study dated 06/28/2017. The examination is degraded by portable technique, large body habit us, and apical lordotic positioning. The cardiomediastinal silhouette is unremarkable. The lungs and pleural spaces are clear. No pneumothorax is seen. The bony thorax is grossly intact. IMPRESSION: No active disease in the chest. ACT 112: Negative or not required by law. Electronically signed by: Kaleb Gordon M.D. 01/16/2023 10:51 AM Chest CTA 01/16/23 12:24 CT angio chest PE protocol CLINICAL HISTORY: PE TECHNIQUE: Multidetector row helical CT of the chest was performed with angiographic protocol. Coronal and sagittal reformations were obtained. Coronal and sagittal MIPS were obtained from the axial data set and were submitted for review. Automated dose lowering techniques and/or adjustment according to patient size were utilized for this exam. CT DOSE: 871.91 mGy.cm Comparison: None available at the time of this dictation. FINDINGS: Lungs and pleura: Atelectasis is in the left lower lung. There is a 4 mm nodule in the right upper lobe (series 4 image 137) Heart and pericardium: There is flattening of the interventricular septum and prominence of the right ventricle. Vessels: Numerous segmental and subsegmental pulmonary emboli are seen most prominently in the right lower lobe with involvement of the right upper and left lower lobes as well. Pulmonary trunk measures 36 mm in diameter. Mediastinum and vika: Unremarkable. Chest wall and lower neck: Unremarkable. Abdomen: Unremarkable. Bones: Degenerative changes in the thoracic spine. IMPRESSION: Multiple segmental and subsegmental pulmonary emboli are seen with pulmonary hypertension and suggestion of right heart strain. ACT 112: Negative or not required by law. Electronically signed by: Uday Pino M.D. 01/16/2023 1:10 PM ECG Additional Comments: Reviewed and in NSR. Code Status & VTE Plan Code Status Full code- discussed with the patient at bedside VTE Prophylaxis Plan VTE Prophylaxis will be ordered: Yes Supervising Physician Co-Signing Physician Notes I have seen and examined the patient and have discussed the case with the provider above. I agree with the assessment and plan as stated. The patient is a 37-year-old female presented with shortness of breath and chest discomfort. Work-up included a chest CT revealing pulmonary embolus. She was started on heparin drip in the ER. She does report pain in her ankles recently but venous ultrasound of the lower extremities reveal no evidence of DVT in the right or left leg. Physical exam reveals a obese female in no acute distress but reporting pain in her left lower side and into her back. She is having pain with taking deep breaths but pulmonary auscultation is clear throughout her lungs. Cardiovascular exam reveals S1-S2 heard with no murmurs gallops or rubs. She has no peripheral edema and is euvolemic. She is hemodynamically stable and afebrile. She is oxygenating well on room air. Work-up including a CBC and BMP is within normal limits. Urinalysis is negative for infection but microscopic blood is present which should be repeated as outpt. Urine test is pending. D-dimer was elevated. A CT PE of the chest with contrast revealed multiple segmental and subsegmental pulmonary emboli with a suggestion of right heart strain. 1. Acute PE 2. Morbid obesity 3. Tobacco abuse We will plan to continue heparin drip with transition to an oral anticoagulant. Pulmonary consultation discussed warfarin as the preferred agent, but would defer to hematology to make the final decision for her oral anticoagulation. Episode appears unprovoked. Although a hypercoagulable work-up would be needed, this can be accomplished when the patient sees hematology as an outpatient. Smoking cessation is strongly recommended. Continue monitoring on telemetry and supportive care with pain control efforts and anticoagulation. DO Varinder (1) Pulmonary emboli Acute cor pulmonale presence: with acute cor pulmonale Chronicity: acute Pulmonary embolism type: unspecified Qualified Code(s): I26.09 - Other pulmonary embolism with acute cor pulmonale
[2023-01-16] MEDS: HEPARIN SODIUM/DEXTROSE 25,000 UNITS/500 ML BAG IV SCH (14:01)
[2023-01-16 14:12] LABS: Partial Thromboplastin Ratio 0.9; Prothrombin Time 10.6 Seconds (9.0-12.0)
[2023-01-16] MEDS ORDERED: buprenorphine HCL 2 MG SUBL SL ONE (15:28)
--- NOTE | 2023-01-16 15:54 | Ultrasound Report ---
ULTRASOUND BILATERAL LOWER EXTREMITY VENOUS CLINICAL HISTORY: Pulmonary embolus. COMPARISON STUDY: No priors TECHNIQUE: Real-time, grayscale, and color Doppler sonography of the deep veins of the right and left lower extremity was performed from the inguinal crease to the calf. Compression and augmentation wer e utilized. FINDINGS: There is no sonographic evidence of deep venous thrombosis identified in the right or left lower extremity. The common femoral, superficial femoral, and popliteal veins are patent and normally compressible bilaterally. The greater saphenous vein and the profunda femoris vein at the junction w ith the common femoral vein are clear in both legs. The visualized calf veins are patent bilaterally. IMPRESSION: There is no sonographic evidence of deep venous thrombosis identified in the right or lef t lower extremity. ACT 112: Negative or not required by law. Electronically signed by: Kaleb Gordon M.D. 01/16/2023 3:52 PM
[2023-01-16] MEDS ORDERED: ONDANSETRON INJ 2 MG/ML 2 ML VIAL IV PRN (15:57)
--- NOTE | 2023-01-16 16:25 | Pulmonary Consultation ---
Date of Consultation January 16, 2023 Assessment & Plan (1) SOB (shortness of breath): (2) Pulmonary emboli: Acute cor pulmonale presence: with acute cor pulmonale Chronicity: acute Pulmonary embolism type: unspecified Qualified Code(s): I26.09 - Other pulmonary embolism with acute cor pulmonale (3) Bipolar disorder: (4) Pleuritic chest pain: (5) Morbid obesity: (6) Hypersomnia: (7) Current smoker: (8) Pulmonary nodule: (9) Pleural effusion: Plan CT chest 01/16/2023 personally reviewed: Pulmonary emboli appreciated bilaterally lower lobes, linear, blunted in the right lower lobe Small 4 mm right upper lobe perifissural pulmonary nodule Small left-sided pleural effusion Minimal dependent ectasis bilateral lower lobes No significant mediastinal lymphadenopathy -- Acute pulmonary emboli sPESI 0, 1.1% mortality Unprovoked No indication for thrombolytic Doppler bilateral lower extremity negative for DVT Given the BMI of 50, unprovoked pulmonary emboli would recommend lifelong anticoagulation --Small left-sided pleural effusion with pleuritic chest pain Likely pulmonary infarct As needed pain medication Can do with incentive spirometry --Pulmonary nodule Right upper lobe 4 mm -- Morbid obesity Patient will benefit from outpatient polysomnography Weight loss encouraged -- History of blood clots in father as well as mother Plan: Continue with heparin drip and transition to p.o. anticoagulation in the next 24-48 hours No indication for thrombolysis Recommend 2D echo Given the strong family history of blood clots. Would recommend hypercoagulable work-up including factor V and cardiolipin Recommend hematology consult regarding anticoagulation. Warfarin would be preferred given the BMI of 50 Continue with incentive spirometry Case was discussed with RN at bedside Please note the above document was generated using voice recognition software. It may contain grammatical, syntax or spelling errors.Any formal questions or concerns about the content, text or information contained within the body of this dictation should be directly addressed to the provider for clarification. History of Present Illness Attending Physician: Arline Reeder DO History of Present Illness 37-year-old female presented to the hospital with complaints of shortness of breath Past medical history: History of drug abuse, hepatitis C, hypertension, morbid obesity Pulmonary consulted for finding of pulmonary embolism At the time of examination patient was not in any respiratory distress. Patient's boyfriend was in the room. He was saturating 97% on room air with heart rate in the low 80s. She did complain of chest pain on the left side which is worse when she is taking a deep breath. No recent travel history, no history of trauma to the legs No history of spontaneous . Patient has never been . Does not take any OCPs Did complain of subjective fever yesterday. No nausea or vomiting No abdominal pain No headache, no blurry vision Never had clots in the past that she knows of. Strong family history of blood clots in father as well as mother Social history: Approximately [id number] smoking history. History of IV heroin use, last use was approximately 2 years ago. Denies any alcohol use. Allergies Allergy/AdvReac Type Severity Reaction Status Date / Time naloxone AdvReac Ligjht Verified 01/16/23 14:18 headed, gi-upset Home Medications Medication Instructions Recorded Confirmed Type buprenorphine HCl 8 mg sublingual 4 mg sublingual QID 01/16/23 01/16/23 History tablet Patient History Medical History Bipolar disorder Depression Hepatitis C Hypertension Surgical History (Updated 02/23/19 @ 15:20 by Gilbert Gaxiola) History of cholecystectomy History of tonsillectomy Family History (Updated 02/23/19 @ 15:22 by Gilbert Gaxiola) Mother Cardiac disorder Depression Diabetes Hypertension Kidney disease Lung disease Father Diabetes Kidney stones Grandmother Breast cancer Uterus cancer Other No pertinent family history Prostate cancer Denies family history of Ovarian cancer Myocardial infarction Colorectal cancer Social History Smoking Status: Current every day smoker Age Started Using Tobacco: 16; packs per day: 1; Second Hand Exposure: Yes; Hx Alcohol Use: Yes Hx Substance Use: Yes (Suboxone) Last Used Substance Other:: quit 2011 Preferred Language: Icelandic Communication Ability: Effective Visual Impairment: No Limitations Hearing Ability: Normal marital status: Single Current Living Situation Comment: with parents and fiance current occupational status: employed 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 Feels Safe at Home: Yes Dental Care, Regularly: Yes Physical Activity Frequency: Daily Seatbelt Use: always Review of Systems Review of Systems: All systems reviewed & are unremarkable except as noted in HPI & below Physical Exam Physical Exam: Constitutional: No acute distress HEENT: EOMI, PERRLA, thick neck Respiratory system: Decreased air entry bilaterally, no wheeze, no rhonchi, mild crackles bilateral lower lobes CVS: S1-S2 positive, no murmurs or gallops, distant heart sounds Abdomen: Soft, nontender, nondistended, positive bowel sounds x4, obese Extremities: +2 pulses bilaterally radialis/ dorsalis pedis, no cyanosis, +2 pitting edema bilateral lower extremity Neuro: Awake alert oriented x3 Psych: Normal mood and affect G/U: No Liu Skin: no rashes, warm and dry Lymphatic: no cervical or axillary lymphadenopathy Results & Data Results & Data Vital Signs (Past 12 Hours) Vital Signs Temp Pulse Pulse Resp BP BP Pulse Ox 01/16/23 14:40 85 18 96 01/16/23 14:30 85 20 179/88 H 98 01/16/23 14:00 81 19 145/102 H 98 01/16/23 13:13 159/96 H 95 01/16/23 12:30 76 17 137/76 92 01/16/23 12:00 79 17 140/71 94 01/16/23 11:46 77 01/16/23 11:30 77 17 134/69 98 01/16/23 11:00 81 17 166/93 H 98 01/16/23 10:29 98 01/16/23 10:51 81 22 152/103 H 98 01/16/23 10:47 98 01/16/23 10:33 37.0 C O2 Del Method 01/16/23 14:40 01/16/23 14:30 Room Air 01/16/23 14:00 Room Air 01/16/23 13:13 Room Air 01/16/23 12:30 Room Air 01/16/23 12:00 Room Air 01/16/23 11:46 01/16/23 11:30 Room Air 01/16/23 11:00 Room Air 01/16/23 10:29 Room Air 01/16/23 10:51 Room Air 01/16/23 10:47 Room Air 01/16/23 10:33 Laboratory Results 01/16/23 11:11 01/16/23 11:11 PG Care Time/CCT Total # of Minutes Spent Total Time Spent with Patient: Total time spent is greater than 50% in coordination of care (as documented) at patient's floor/unit and/or counseling patient: Coding Level of Care Code 05772 INT INP/OBS CARE MIN Diagnoses SOB (shortness of breath) R06.02 Pulmonary emboli I26.09 Acute cor pulmonale presence: with acute cor pulmonale Chronicity: acute Pulmonary embolism type: unspecified Bipolar disorder F31.9 Pleuritic chest pain R07.81 Morbid obesity E66.01 Hypersomnia G47.10 Current smoker F17.200 Pulmonary nodule R91.1 Pleural effusion J90
[2023-01-16] MEDS ORDERED: KETOROLAC TROMETHAMINE 15 MG/ML VIAL IV PRN (17:20)
[2023-01-16] MEDS ORDERED: KETOROLAC TROMETHAMINE 15 MG/ML VIAL ONE (17:24)
[2023-01-16 18:37] LABS: Appearance Urine Clear (Clear); Bacteria Urine Automated Negative (Negative); Bilirubin Urine Negative (Negative); Blood Urine 1+ (Negative); Color Urine Yellow; Epithelial Cell Urine Auto >30 /lpf (0-5); Glucose Urine UA Negative (Negative); Ketones Urine Negative (Negative); Leukocyte Esterase Urine Negative (Negative); Nitrite Urine Negative (Negative); Protein Urine Negative (Negative); Specific Gravity Urine > 1.045 (1.000-1.030); Urobilinogen Urine Negative (Negative)
[2023-01-16] MEDS: buprenorphine HCL 8 MG SUBL SL SCH (21:09)
[2023-01-16 21:17] LABS: Partial Thromboplastin Ratio 0.9; Partial Thromboplastin Time 26.2 Seconds (21.0-31.0)
[2023-01-16 21:28] LABS: Pregnancy Test, Urine Negative (Negative)
[2023-01-17 05:09] LABS: Partial Thromboplastin Ratio 0.9; Partial Thromboplastin Time 26.2 Seconds (21.0-31.0)
--- NOTE | 2023-01-17 05:41 | Electrocardiogram Report ---
Test Reason : Blood Pressure : / mmHG Vent. Rate : 088 BPM Atrial Rate : 088 BPM P-R Int : 150 ms QRS Dur : 078 ms QT Int : 352 ms P-R-T Axes : 045 -39 045 degrees QTc Int : 425 ms Normal sinus rhythm Left axis deviation Abnormal ECG When compared with ECG of 22-MAR-2007 19:45, Vent. rate has increased BY 34 BPM QRS axis Shifted left Confirmed by Fam Rubi ([id number]) on 01/17/2023 5:41:02 AM Referred By: Confirmed By:Fam Rubi
[2023-01-17] MEDS ORDERED: HEPARIN SOD (PORCINE) 1000 UNIT/ML IV ONE ×2 (05:45→13:00)
[2023-01-17] MEDS: buprenorphine HCL 8 MG SUBL SL SCH ×4 (07:59→20:23)
[2023-01-17] MEDS: HEPARIN SODIUM/DEXTROSE 25,000 UNITS/500 ML BAG IV SCH ×3 (11:19→23:55)
[2023-01-17 12:27] LABS: Partial Thromboplastin Ratio 1.1; Partial Thromboplastin Time 31.4 Seconds (21.0-31.0)
--- NOTE | 2023-01-17 13:20 | Pulmonology Progress Note ---
Date of Service January 17, 2023 Assessment & Plan (1) SOB (shortness of breath): (2) Pulmonary emboli: Acute cor pulmonale presence: with acute cor pulmonale Chronicity: acute Pulmonary embolism type: unspecified Qualified Code(s): I26.09 - Other pulmonary embolism with acute cor pulmonale (3) Bipolar disorder: (4) Pleuritic chest pain: (5) Morbid obesity: (6) Hypersomnia: (7) Current smoker: (8) Pulmonary nodule: (9) Pleural effusion: Plan CT chest 01/16/2023 personally reviewed: Pulmonary emboli appreciated bilaterally lower lobes, linear, blunted in the right lower lobe Small 4 mm right upper lobe perifissural pulmonary nodule Small left-sided pleural effusion Minimal dependent ectasis bilateral lower lobes No significant mediastinal lymphadenopathy -- Acute pulmonary emboli sPESI 0, 1.1% mortality Unprovoked No indication for thrombolytic Doppler bilateral lower extremity negative for DVT Given the BMI of 50, unprovoked pulmonary emboli would recommend lifelong an ticoagulation --Small left-sided pleural effusion with pleuritic chest pain Likely pulmonary infarct As needed pain medication Can do with incentive spirometry --Pulmonary nodule Right upper lobe 4 mm -- Morbid obesity Patient will benefit from outpatient polysomnography Weight loss encouraged -- History of blood clots in father as well as mother Plan: Recommend 2D echo Given the strong family history of blood clots. Would recommend hypercoagulable work-up including factor V and cardiolipin Recommend hematology consult regarding anticoagulation. Warfarin would be preferred given the BMI of 50 Continue with incentive spirometry Discussed with Dr. Wagner No further recommendation for pulmonary perspective We will sign off, please call directly with any questions Please note the above document was generated using voice recognition software. It may contain grammatical, syntax or spelling errors.Any formal questions or concerns about the content, text or information contained within the body of this dictation should be directly addressed to the provider for clarification. Admission and Anticipated Discharge Date Admission Date: January 16, 2023 Subjective Patient seen and examined at bedside. No acute distress, no adverse events overnight Patient was saturating 98% on room air with heart rate of 68. Denies any pleuritic chest pain today. No nausea vomiting Fair appetite No dizziness, no palpitation Review of Systems Review of Systems: All systems reviewed & are unremarkable except as noted in Subjective Physical Exam Physical Exam: Constitutional: No acute distress HEENT: EOMI, PERRLA, thick neck Respiratory system: Decreased air entry bilaterally, no wheeze, no rhonchi, mild crackles bilateral lower lobes CVS: S1-S2 positive, no murmurs or gallops, distant heart sounds Abdomen: Soft, nontender, nondistended, positive bowel sounds x4, obese Extremities: +2 pulses bilaterally radialis/ dorsalis pedis, no cyanosis, +2 pitting edema bilateral lower extremity Neuro: Awake alert oriented x3 Psych: Normal mood and affect G/U: No Liu Skin: no rashes, warm and dry Lymphatic: no cervical or axillary lymphadenopathy Results & Data Results & Data Vital Signs (Past 12 Hours) Vital Signs Temp Pulse Resp BP Pulse Ox O2 Del Method 01/17/23 11:18 36.7 C 57 L 18 132/84 98 Room Air 01/17/23 07:37 36.9 C 63 18 123/80 95 Room Air 01/17/23 08:00 Room Air 01/17/23 03:46 36.7 C 60 18 120/77 95 Room Air Laboratory Results 01/16/23 11:11 01/16/23 11:11 PG Care Time/CCT Total # of Minutes Spent Total Time Spent with Patient: Total time spent is greater than 50% in coordination of care (as documented) at patient's floor/unit and/or counseling patient: Coding Level of Care Code 98301 SUB INP/OBS CARE 2/35MIN Diagnoses SOB (shortness of breath) R06.02 Pulmonary emboli I26.09 Acute cor pulmonale presence: with acute cor pulmonale Chronicity: acute Pulmonary embolism type: unspecified Bipolar disorder F31.9 Pleuritic chest pain R07.81 Morbid obesity E66.01 Hypersomnia G47.10 Current smoker F17.200 Pulmonary nodule R91.1 Pleural effusion J90
--- NOTE | 2023-01-17 15:03 | Hospitalist Progress Note ---
Date of Service January 17, 2023 Assessment & Plan (1) Pulmonary emboli: (2) SOB (shortness of breath): Plan: -Continue on heparin drip, low dose bolus for now - consider transition to DOAC tomorrow -Doppler ultrasound bilat LE ordered-no DVT, specifically noted swelling and hx of pain in the left lower extremity -CT of the chest has been reviewed showing segmental and subsegmental PE bilaterally -Right-sided heart strain to be evaluated with echo-LV systolic function is normal, EF 60 to 65%, RV is normal in size, right ventricular systolic function is normal and no significant valvular pathology -Consult pulm for heavy clot burden-appreciate input and recommendation -Discussed with the antenna specialist and will start on Coumadin -Hypercoagulable work-up have been sent (3) Hepatitis C: Plan: - Hx of such from 2014 - outpt epic result reviewed showing HCV Ab reactive and ratio of 21.30 --- consider adding Hep C Ab while here to test - discussed following up with PCP or hepatology as outpatient after her acute hospital stay - pt is in agreement - Pt had HIV ag/Ab screen on 03/04/20 which was negative - hx of IVDA with heroin, clean for 2 years and is currently on Subutex 8 mg BID and splits this up to being 4 mg QID. - Will ask pharmacy to verify med. PDMP reviewed by myself. (4) Hypertension: Plan: - No longer on antihypertensive medication - discussed weight loss and diet at bedside - BP is fluctuating but has a small cuff on her forearm. (5) Depression: Plan: - Pt is not longer on antidepressant medication (6) Wheezing: Plan: - hx of seasonal allergies, continue supportive care if needed DVT ppx: heparin gtt CODE: Full code Dispo: From home, likely to remain in the hospital x 1 day (7) Morbid obesity: Admission and Anticipated Discharge Date Admission Date: January 16, 2023 Subjective 01/17/2023 The patient was seen and examined in telemetry unit She was admitted with bilateral pulmonary embolism which was unprovoked with a strong family history of clot She denies any symptoms and has been feeling a lot better Review of Systems Review of Systems: All systems reviewed and are unremarkable except as noted below Respiratory: No respiratory symptoms Cardiovascular: Additional Comments: No chest pain and her palpitation Physical Exam Physical Exam: Sitting at the edge of the bed without any acute distress Constitutional: well developed, well nourished and + morbidly obese; not ill appearing Eyes: PERRL, conjunctivae normal, anicteric sclerae ENMT: external ear and nose normal, oropharynx normal Neck: trachea midline, no thyromegaly Respiratory: no respiratory distress Auscultation: + diminished lung sounds and + crackles (Minimal crackles at the bases) Cardiovascular: Rate/Rhythm: regular rate, regular rhythm and + bradycardic Heart Sounds: normal S1 and normal S2; no murmur Extremities: + edema (Trace edema bilaterally) Gastrointestinal (Abdomen): Inspection/Auscultation: + abdomen distended and normal bowel sounds Percussion/Palpation: abdomen soft; abdomen nontender Musculoskeletal: No acute arthritis in any joint Neurologic: Alert, awake and oriented x3. No focal sensory or no motor deficit appreciated Psychiatric: A+Ox3, euthymic affect Results & Data Results & Data Vital Signs (Past 12 Hours) Vital Signs Temp Pulse Resp BP Pulse Ox O2 Del Method 01/17/23 11:18 36.7 C 57 L 18 132/84 98 Room Air 01/17/23 07:37 36.9 C 63 18 123/80 95 Room Air 01/17/23 08:00 Room Air 01/17/23 03:46 36.7 C 60 18 120/77 95 Room Air (1) Pulmonary emboli Acute cor pulmonale presence: with acute cor pulmonale Chronicity: acute Pulmonary embolism type: unspecified Qualified Code(s): I26.09 - Other pulmonary embolism with acute cor pulmonale
[2023-01-17] MEDS: WARFARIN SOD 7.5 MG TAB PO SCH (16:35)
[2023-01-17 18:02] LABS: Partial Thromboplastin Ratio 1.5
[2023-01-17 18:04] LABS: Partial Thromboplastin Time 42.1 Seconds (21.0-31.0)
[2023-01-17] MEDS: ACETAMINOPHEN 325 MG TAB PO PRN (22:55)
[2023-01-18] MEDS: ACETAMINOPHEN 325 MG TAB PO PRN (05:34)
[2023-01-18 06:12] LABS: Basophils # (auto) 0.03 K/uL (0-0.2); Basophils % (auto) 0.5 %; Eosinophils # (auto) 0.11 K/uL (0-0.50); Eosinophils % (auto) 1.7 %; Hematocrit (blood only) 37.4 % (37.0-47.0); Hemoglobin 12.4 g/dl (12.0-16.0); Immature Granulocytes # (auto) 0.04 K/uL (0.01-0.20); Immature Granulocytes % (auto) 0.6 %; Lymphocytes # (auto) 2.52 K/uL (1.2-3.4); Lymphocytes % (auto) 39.3 %; Mean Corpuscular Hemoglobin 30.7 pg (25.0-34.0); Mean Corpuscular Hgb Conc 33.2 g/dL (32.0-36.0); Mean Corpuscular Volume 92.6 fL (80.0-100.0); Monocytes % (auto) 6.2 %; Neutrophils # (auto) 3.32 K/uL (1.40-6.50); Neutrophils % (auto) 51.7 %; Platelet Count 154 K/uL (130-400); RDW Coefficient of Variation 12.2 % (11.5-14.5); RDW Standard Deviation 41.7 fL (36.4-46.3); Red Blood Count 4.04 M/uL (4.20-5.40); White Blood Count 6.42 K/ul (4.8-10.8)
[2023-01-18 06:18] LABS: BUN Creatinine Ratio 20.9 (10-20); Calcium 8.3 mg/dl (8.6-10.3); Creatinine Clr Calc Pharmacy 131.7 ml/min; Est GFR (Non-African American) 86.3 ml/min; Potassium 4.1 mmol/L (3.5-5.1)
[2023-01-18 06:57] LABS: Partial Thromboplastin Ratio 1.2; Partial Thromboplastin Time 33.9 Seconds (21.0-31.0)
[2023-01-18] MEDS ORDERED: HEPARIN SOD (PORCINE) 1000 UNIT/ML IV ONE ×2 (07:15→22:30)
[2023-01-18] MEDS: buprenorphine HCL 8 MG SUBL SL SCH ×4 (07:36→20:44)
[2023-01-18] MEDS: HEPARIN SODIUM/DEXTROSE 25,000 UNITS/500 ML BAG IV SCH (12:29)
[2023-01-18 14:03] LABS: Partial Thromboplastin Ratio 1.4; Partial Thromboplastin Time 38.4 Seconds (21.0-31.0)
--- NOTE | 2023-01-18 14:30 | Hospitalist Progress Note ---
Date of Service January 18, 2023 Assessment & Plan (1) Pulmonary emboli: Plan: -Continue on heparin drip, low dose bolus for now - consider transition to DOAC tomorrow -Doppler ultrasound bilat LE ordered-no DVT, specifically noted swelling and hx of pain in the left lower extremity -CT of the chest has been reviewed showing segmental and subsegmental PE bilaterally -Right-sided heart strain to be evaluated with echo-LV systolic function is normal, EF 60 to 65%, RV is normal in size, right ventricular systolic function is normal and no significant valvular pathology -Consult pulm for heavy clot burden-appreciate input and recommendation -Discussed with the sheet pile driver operator and will start on Coumadin -Hypercoagulable work-up have been sent -We will continue with intravenous heparin and oral Coumadin for now -She is not yet ready to be discharged likely to have heparin and Coumadin over the weekend and plan to discharge on Saturday/Saturday (2) SOB (shortness of breath): Plan: Remains minimally shortness of breath with pleuritic chest pain involving the left lower lateral chest wall (3) Hepatitis C: Plan: - Hx of such from 2014 - outpt epic result reviewed showing HCV Ab reactive and ratio of 21.30 --- consider adding Hep C Ab while here to test - discussed following up with PCP or hepatology as outpatient after her acute hospital stay - pt is in agreement - Pt had HIV ag/Ab screen on 03/04/20 which was negative - hx of IVDA with heroin, clean for 2 years and is currently on Subutex 8 mg BID and splits this up to being 4 mg QID. - Will ask pharmacy to verify med. PDMP reviewed by myself. (4) Hypertension: Plan: - No longer on antihypertensive medication - discussed weight loss and diet at bedside - BP is fluctuating but has a small cuff on her forearm. (5) Depression: Plan: - Pt is not longer on antidepressant medication (6) Wheezing: Plan: - hx of seasonal allergies, continue supportive care if needed DVT ppx: heparin gtt CODE: Full code Dispo: From home, likely to remain in the hospital x 1 day (7) Morbid obesity: Admission and Anticipated Discharge Date Admission Date: January 16, 2023 Subjective 01/17/2023 The patient was seen and examined in telemetry unit She was admitted with bilateral pulmonary embolism which was unprovoked with a strong family history of clot She denies any symptoms and has been feeling a lot better 01/18/2023 The patient was seen and examined in telemetry unit She has been complaining of pain with deep breathing especially on the left lateral chest wall Complains of headache as well Trying to ambulate in the room Review of Systems Review of Systems: All systems reviewed and are unremarkable except as noted below Respiratory: No respiratory symptoms Cardiovascular: Additional Comments: No chest pain and her palpitation Physical Exam Physical Exam: Sitting at the edge of the bed without any acute distress Constitutional: well developed, well nourished and + morbidly obese; not ill appearing Eyes: PERRL, conjunctivae normal, anicteric sclerae ENMT: external ear and nose normal, oropharynx normal Neck: trachea midline, no thyromegaly Respiratory: no respiratory distress Auscultation: + diminished lung sounds and + crackles (Minimal crackles at the bases) Cardiovascular: Rate/Rhythm: regular rate, regular rhythm and + bradycardic Heart Sounds: normal S1 and normal S2; no murmur Extremities: + edema (Trace edema bilaterally) Gastrointestinal (Abdomen): Inspection/Auscultation: + abdomen distended and normal bowel sounds Percussion/Palpation: abdomen soft; abdomen nontender Psychiatric: A+Ox3, euthymic affect Results & Data Results & Data Vital Signs (Past 12 Hours) Vital Signs Temp Pulse Pulse Resp BP Pulse Ox O2 Del Method 01/18/23 12:25 36.8 C 64 16 128/86 99 Room Air 01/18/23 08:00 74 14 121/81 97 Room Air 01/18/23 07:40 36.9 C 83 16 172/101 H 97 Room Air 01/18/23 07:00 54 L 01/18/23 03:00 36.8 C 62 19 136/88 98 Room Air Laboratory Results Short CBC 01/18/23 Range/Units 05:25 WBC 6.42 (4.8-10.8) K/ul Hgb 12.4 (12.0-16.0) g/dl Hct 37.4 (37.0-47.0) % Plt Count 154 (130-400) K/uL BMP 01/18/23 05:25 Sodium 136 Potassium 4.1 Chloride 105 Carbon Dioxide 27 BUN 18 Creatinine 0.86 Glucose 97 Calcium 8.3 L Medications Administered Current Inpatient Medications Acetaminophen (Acetaminophen 325 Mg Tab) 650 mg PO Q4H PRN PRN Reason: Moderate Pain (Scale 4, 5, 6) Stop: 02/15/23 15:56 Last Admin: 01/18/23 05:34 Dose: 650 mg Buprenorphine HCl (Buprenorphine Hcl 8 Mg Subl) 4 mg SL QID [facility] Stop: 02/15/23 20:59 Last Admin: 01/18/23 12:29 Dose: 4 mg Heparin Sodium/Dextrose (Heparin Sodium/Dextrose) 25,000 units in 500 mls @ 42 mls/hr IV .[id number] [facility]; Protocol Stop: 02/15/23 13:44 Last Titration: 01/18/23 14:10 Dose: 2,100 units/hr, 42 mls/hr Ketorolac Tromethamine (Ketorolac Tromethamine 15 Mg/Ml Vial) 15 mg IV Q6H PRN PRN Reason: Pain Stop: 01/21/23 17:19 Last Admin: 01/17/23 01:06 Dose: 15 mg Ondansetron HCl (Ondansetron Inj 2 Mg/Ml 2 Ml Vial) 4 mg IV Q4H PRN PRN Reason: Nausea And Vomiting Stop: 02/15/23 15:56 Warfarin Sodium (Warfarin Sod 7.5 Mg Tab) 7.5 mg PO DAILY@1600 [facility] Stop: 02/16/23 15:59 Last Admin: 01/17/23 16:35 Dose: 7.5 mg (1) Pulmonary emboli Acute cor pulmonale presence: with acute cor pulmonale Chronicity: acute Pulmonary embolism type: unspecified Qualified Code(s): I26.09 - Other pulmonary embolism with acute cor pulmonale
[2023-01-18] MEDS: WARFARIN SOD 7.5 MG TAB PO SCH (17:28)
[2023-01-18 22:00] LABS: Partial Thromboplastin Ratio 1.3; Partial Thromboplastin Time 35.4 Seconds (21.0-31.0)
[2023-01-19] MEDS: HEPARIN SODIUM/DEXTROSE 25,000 UNITS/500 ML BAG IV SCH ×3 (00:16→21:50)
[2023-01-19 04:43] LABS: Basophils # (auto) 0.03 K/uL (0-0.2); Basophils % (auto) 0.5 %; Eosinophils # (auto) 0.14 K/uL (0-0.50); Eosinophils % (auto) 2.3 %; Hematocrit (blood only) 39.8 % (37.0-47.0); Hemoglobin 13.7 g/dl (12.0-16.0); Immature Granulocytes # (auto) 0.04 K/uL (0.01-0.20); Immature Granulocytes % (auto) 0.7 %; Lymphocytes # (auto) 2.25 K/uL (1.2-3.4); Lymphocytes % (auto) 36.8 %; Mean Corpuscular Hemoglobin 30.9 pg (25.0-34.0); Mean Corpuscular Hgb Conc 34.4 g/dL (32.0-36.0); Mean Corpuscular Volume 89.6 fL (80.0-100.0); Monocytes # (auto) 0.39 K/uL (0.11-0.59); Monocytes % (auto) 6.4 %; Neutrophils # (auto) 3.27 K/uL (1.40-6.50); Neutrophils % (auto) 53.3 %; RDW Coefficient of Variation 11.9 % (11.5-14.5); RDW Standard Deviation 38.5 fL (36.4-46.3); Red Blood Count 4.44 M/uL (4.20-5.40); White Blood Count 6.12 K/ul (4.8-10.8)
[2023-01-19 04:44] LABS: Mean Platelet Volume 10.4 fL (9.4-12.4); Platelet Count 126 K/uL (130-400)
[2023-01-19 05:52] LABS: INR 1.1 (0.9-1.1); Partial Thromboplastin Ratio 2.1; Prothrombin Time 11.6 Seconds (9.0-12.0)
[2023-01-19 06:05] LABS: Partial Thromboplastin Time 58.1 Seconds (21.0-31.0)
[2023-01-19] MEDS: buprenorphine HCL 8 MG SUBL SL SCH ×4 (07:59→20:53)
--- NOTE | 2023-01-19 11:26 | Hospitalist Progress Note ---
Date of Service January 19, 2023 Assessment & Plan (1) Pulmonary emboli: Plan: -Continue on heparin drip, low dose bolus for now - consider transition to DOAC tomorrow -Doppler ultrasound bilat LE ordered-no DVT, specifically noted swelling and hx of pain in the left lower extremity -CT of the chest has been reviewed showing segmental and subsegmental PE bilaterally -Right-sided heart strain to be evaluated with echo-LV systolic function is normal, EF 60 to 65%, RV is normal in size, right ventricular systolic function is normal and no significant valvular pathology -Consult pulm for heavy clot burden-appreciate input and recommendation -Discussed with the lending manager and will start on Coumadin -Hypercoagulable work-up have been sent -We will continue with intravenous heparin and oral Coumadin for now -She is not yet ready to be discharged likely to have heparin and Coumadin over the weekend and plan to discharge on Saturday/Saturday -No more pleuritic chest pain and no shortness of breath with activity -We will continue the current medications including Coumadin 7.5 mg tonight -Likely discharge Saturday or Saturday (2) SOB (shortness of breath): Plan: Remains minimally shortness of breath with pleuritic chest pain involving the left lower lateral chest wall No shortness of breath at rest or with minimal exertion (3) Hepatitis C: Plan: - Hx of such from 2014 - outpt epic result reviewed showing HCV Ab reactive and ratio of 21.30 --- consider adding Hep C Ab while here to test - discussed following up with PCP or hepatology as outpatient after her acute hospital stay - pt is in agreement - Pt had HIV ag/Ab screen on 03/04/20 which was negative - hx of IVDA with heroin, clean for 2 years and is currently on Subutex 8 mg BID and splits this up to being 4 mg QID. - Will ask pharmacy to verify med. PDMP reviewed by myself. (4) Hypertension: Plan: - No longer on antihypertensive medication - discussed weight loss and diet at bedside - BP is fluctuating but has a small cuff on her forearm. (5) Depression: Plan: - Pt is not longer on antidepressant medication (6) Wheezing: Plan: - hx of seasonal allergies, continue supportive care if needed DVT ppx: heparin gtt CODE: Full code Dispo:Home (7) Morbid obesity: Admission and Anticipated Discharge Date Admission Date: January 16, 2023 Subjective 01/17/2023 The patient was seen and examined in telemetry unit She was admitted with bilateral pulmonary embolism which was unprovoked with a strong family history of clot She denies any symptoms and has been feeling a lot better 01/18/2023 The patient was seen and examined in telemetry unit She has been complaining of pain with deep breathing especially on the left lateral chest wall Complains of headache as well Trying to ambulate in the room 01/19/2023 The patient was seen and examined in telemetry unit She does not have any more pain today with breathing She denies any shortness of breath at rest or with exertion Her INR is 1.1 today Review of Systems Review of Systems: All systems reviewed and are unremarkable except as noted below Respiratory: No respiratory symptoms Cardiovascular: Additional Comments: No chest pain and her palpitation Physical Exam Physical Exam: Sitting at the edge of the bed without any acute distress Constitutional: well developed, well nourished and + morbidly obese; not ill appearing Eyes: PERRL, conjunctivae normal, anicteric sclerae ENMT: external ear and nose normal, oropharynx normal Neck: trachea midline, no thyromegaly Respiratory: no respiratory distress Auscultation: + diminished lung sounds and + crackles (Minimal crackles at the bases) Cardiovascular: Rate/Rhythm: regular rate, regular rhythm and + bradycardic Heart Sounds: normal S1 and normal S2; no murmur Extremities: + edema (Trace edema bilaterally) Gastrointestinal (Abdomen): Inspection/Auscultation: + abdomen distended and normal bowel sounds Percussion/Palpation: abdomen soft; abdomen nontender Psychiatric: A+Ox3, euthymic affect Results & Data Results & Data Vital Signs (Past 12 Hours) Vital Signs Temp Pulse Pulse Resp BP Pulse Ox O2 Del Method 01/19/23 07:00 61 01/19/23 07:33 36.9 C 55 L 20 137/84 99 Room Air 01/19/23 03:54 36.5 C 59 L 16 121/80 97 Room Air 01/19/23 01:31 23 01/19/23 00:15 54 L 21 98 FiO2 01/19/23 07:00 01/19/23 07:33 01/19/23 03:54 01/19/23 01:31 21 01/19/23 00:15 21 Laboratory Results Short CBC 01/19/23 Range/Units 04:16 WBC 6.12 (4.8-10.8) K/ul Hgb 13.7 (12.0-16.0) g/dl Hct 39.8 (37.0-47.0) % Plt Count 126 L (130-400) K/uL Medications Administered Current Inpatient Medications Acetaminophen (Acetaminophen 325 Mg Tab) 650 mg PO Q4H PRN PRN Reason: Moderate Pain (Scale 4, 5, 6) Stop: 02/15/23 15:56 Last Admin: 01/18/23 05:34 Dose: 650 mg Buprenorphine HCl (Buprenorphine Hcl 8 Mg Subl) 4 mg SL QID [facility] Stop: 02/15/23 20:59 Last Admin: 01/19/23 07:59 Dose: 4 mg Heparin Sodium/Dextrose (Heparin Sodium/Dextrose) 25,000 units in 500 mls @ 46 mls/hr IV .[id number] [facility]; Protocol Stop: 02/15/23 13:44 Last Titration: 01/19/23 06:49 Dose: 2,300 units/hr, 46 mls/hr Ketorolac Tromethamine (Ketorolac Tromethamine 15 Mg/Ml Vial) 15 mg IV Q6H PRN PRN Reason: Pain Stop: 01/21/23 17:19 Last Admin: 01/17/23 01:06 Dose: 15 mg Ondansetron HCl (Ondansetron Inj 2 Mg/Ml 2 Ml Vial) 4 mg IV Q4H PRN PRN Reason: Nausea And Vomiting Stop: 02/15/23 15:56 Warfarin Sodium (Warfarin Sod 7.5 Mg Tab) 7.5 mg PO DAILY@1600 [facility] Stop: 02/16/23 15:59 Last Admin: 01/18/23 17:28 Dose: 7.5 mg (1) Pulmonary emboli Acute cor pulmonale presence: with acute cor pulmonale Chronicity: acute Pulmonary embolism type: unspecified Qualified Code(s): I26.09 - Other pulmonary embolism with acute cor pulmonale
[2023-01-19] MEDS: WARFARIN SOD 7.5 MG TAB PO SCH (16:57)
[2023-01-20 07:39] LABS: INR 1.3 (0.9-1.1); Partial Thromboplastin Ratio 2.1; Prothrombin Time 13.9 Seconds (9.0-12.0)
[2023-01-20 07:40] LABS: Partial Thromboplastin Time 58.7 Seconds (21.0-31.0)
[2023-01-20] MEDS: buprenorphine HCL 8 MG SUBL SL SCH ×4 (08:16→21:01)
[2023-01-20] MEDS: HEPARIN SODIUM/DEXTROSE 25,000 UNITS/500 ML BAG IV SCH ×2 (08:17→18:53)
--- NOTE | 2023-01-20 12:56 | Hospitalist Progress Note ---
Date of Service January 20, 2023 Assessment & Plan (1) Pulmonary emboli: Plan: -Continue on heparin drip, low dose bolus for now - consider transition to DOAC tomorrow -Doppler ultrasound bilat LE ordered-no DVT, specifically noted swelling and hx of pain in the left lower extremity -CT of the chest has been reviewed showing segmental and subsegmental PE bilaterally -Right-sided heart strain to be evaluated with echo-LV systolic function is normal, EF 60 to 65%, RV is normal in size, right ventricular systolic function is normal and no significant valvular pathology -Consult pulm for heavy clot burden-appreciate input and recommendation -Discussed with the pet feeder and will start on Coumadin -Hypercoagulable work-up have been sent -We will continue with intravenous heparin and oral Coumadin for now -She is not yet ready to be discharged likely to have heparin and Coumadin over the weekend and plan to discharge on Saturday/Saturday -No more pleuritic chest pain and no shortness of breath with activity -We will continue the current medications including Coumadin 7.5 mg tonight -Likely discharge Saturday or Saturday -Remains asymptomatic and she has been ambulating in the room without any difficulties and no more pleuritic chest pain -INR 1.3 and will increase Coumadin to 10 mg today if the INR is therapeutic tomorrow likely be discharged tomorrow in the afternoon (2) SOB (shortness of breath): Plan: Remains minimally shortness of breath with pleuritic chest pain involving the left lower lateral chest wall No shortness of breath at rest or with minimal exertion (3) Hepatitis C: Plan: - Hx of such from 2014 - outpt epic result reviewed showing HCV Ab reactive and ratio of 21.30 --- consider adding Hep C Ab while here to test - discussed following up with PCP or hepatology as outpatient after her acute hospital stay - pt is in agreement - Pt had HIV ag/Ab screen on 03/04/20 which was negative - hx of IVDA with heroin, clean for 2 years and is currently on Subutex 8 mg BID and splits this up to being 4 mg QID. - Will ask pharmacy to verify med. PDMP reviewed by myself. (4) Hypertension: Plan: - No longer on antihypertensive medication - discussed weight loss and diet at bedside - BP is fluctuating but has a small cuff on her forearm. -Blood pressure remains stable (5) Depression: Plan: - Pt is not longer on antidepressant medication (6) Wheezing: Plan: - hx of seasonal allergies, continue supportive care if needed DVT ppx: heparin gtt CODE: Full code Dispo:Home (7) Morbid obesity: Admission and Anticipated Discharge Date Admission Date: January 16, 2023 Subjective 01/17/2023 The patient was seen and examined in telemetry unit She was admitted with bilateral pulmonary embolism which was unprovoked with a strong family history of clot She denies any symptoms and has been feeling a lot better 01/18/2023 The patient was seen and examined in telemetry unit She has been complaining of pain with deep breathing especially on the left lateral chest wall Complains of headache as well Trying to ambulate in the room 01/19/2023 The patient was seen and examined in telemetry unit She does not have any more pain today with breathing She denies any shortness of breath at rest or with exertion Her INR is 1.1 today 01/20/2023 The patient was seen and examined in telemetry unit She has been feeling much better and denies any pleuritic pain No shortness of breath with exertion INR is 1.3 today Review of Systems Review of Systems: All systems reviewed and are unremarkable except as noted below Respiratory: No respiratory symptoms Cardiovascular: Additional Comments: No chest pain and her palpitation Physical Exam Physical Exam: Sitting at the edge of the bed without any acute distress Constitutional: well developed, well nourished and + morbidly obese; not ill appearing Eyes: PERRL, conjunctivae normal, anicteric sclerae ENMT: external ear and nose normal, oropharynx normal Neck: trachea midline, no thyromegaly Respiratory: no respiratory distress Auscultation: + diminished lung sounds and + crackles (Minimal crackles at the bases) Cardiovascular: Rate/Rhythm: regular rate, regular rhythm and + bradycardic Heart Sounds: normal S1 and normal S2; no murmur Extremities: + edema (Trace edema bilaterally) Gastrointestinal (Abdomen): Inspection/Auscultation: + abdomen distended and normal bowel sounds Percussion/Palpation: abdomen soft; abdomen nontender Musculoskeletal: No acute arthritis involving any joint Neurologic: Alert, awake and oriented x3. No focal sensory or no motor deficit appreciated Psychiatric: A+Ox3, euthymic affect Results & Data Results & Data Vital Signs (Past 12 Hours) Vital Signs Temp Pulse Pulse Resp BP Pulse Ox O2 Del Method 01/20/23 10:49 36.8 C 56 L 20 144/84 H 95 Room Air 01/20/23 07:00 55 L 01/20/23 07:51 36.7 C 62 20 110/78 99 Room Air 01/20/23 03:43 36.6 C 57 L 18 113/74 96 Room Air 01/20/23 02:52 54 L Medications Administered Current Inpatient Medications Acetaminophen (Acetaminophen 325 Mg Tab) 650 mg PO Q4H PRN PRN Reason: Moderate Pain (Scale 4, 5, 6) Stop: 02/15/23 15:56 Last Admin: 01/18/23 05:34 Dose: 650 mg Buprenorphine HCl (Buprenorphine Hcl 8 Mg Subl) 4 mg SL QID [facility] Stop: 02/15/23 20:59 Last Admin: 01/20/23 08:16 Dose: 4 mg Heparin Sodium/Dextrose (Heparin Sodium/Dextrose) 25,000 units in 500 mls @ 46 mls/hr IV .[id number] [facility]; Protocol Stop: 02/15/23 13:44 Last Admin: 01/20/23 08:17 Dose: 2,300 units/hr, 46 mls/hr Ketorolac Tromethamine (Ketorolac Tromethamine 15 Mg/Ml Vial) 15 mg IV Q6H PRN PRN Reason: Pain Stop: 01/21/23 17:19 Last Admin: 01/17/23 01:06 Dose: 15 mg Ondansetron HCl (Ondansetron Inj 2 Mg/Ml 2 Ml Vial) 4 mg IV Q4H PRN PRN Reason: Nausea And Vomiting Stop: 02/15/23 15:56 Warfarin Sodium (Warfarin Sod 10 Mg Tab) 10 mg PO DAILY@1600 [facility] Stop: 02/19/23 15:59 (1) Pulmonary emboli Acute cor pulmonale presence: with acute cor pulmonale Chronicity: acute Pulmonary embolism type: unspecified Qualified Code(s): I26.09 - Other pulmonary embolism with acute cor pulmonale
[2023-01-20] MEDS: WARFARIN SOD 10 MG TAB PO SCH (17:11)
[2023-01-20] MEDS: ACETAMINOPHEN 325 MG TAB PO PRN (21:01)
[2023-01-21] MEDS: HEPARIN SODIUM/DEXTROSE 25,000 UNITS/500 ML BAG IV SCH ×3 (05:37→17:09)
[2023-01-21 07:14] LABS: INR 1.7 (0.9-1.1); Prothrombin Time 17.8 Seconds (9.0-12.0)
[2023-01-21] MEDS: buprenorphine HCL 8 MG SUBL SL SCH ×4 (08:20→20:25)
--- NOTE | 2023-01-21 13:28 | Hospitalist Progress Note ---
Date of Service January 21, 2023 Assessment & Plan (1) Pulmonary emboli: Plan: -Continue on heparin drip, low dose bolus for now - consider transition to DOAC tomorrow -Doppler ultrasound bilat LE ordered-no DVT, specifically noted swelling and hx of pain in the left lower extremity -CT of the chest has been reviewed showing segmental and subsegmental PE bilaterally -Right-sided heart strain to be evaluated with echo-LV systolic function is normal, EF 60 to 65%, RV is normal in size, right ventricular systolic function is normal and no significant valvular pathology -Consult pulm for heavy clot burden-appreciate input and recommendation -Discussed with the blind slat stapling machine operator and will start on Coumadin -Hypercoagulable work-up have been sent -We will continue with intravenous heparin and oral Coumadin for now -She is not yet ready to be discharged likely to have heparin and Coumadin over the weekend and plan to discharge on Saturday/Saturday -No more pleuritic chest pain and no shortness of breath with activity -We will continue the current medications including Coumadin 7.5 mg tonight -Likely discharge Saturday or Saturday -Remains asymptomatic and she has been ambulating in the room without any difficulties and no more pleuritic chest pain -INR 1.3 and will increase Coumadin to 10 mg today if the INR is therapeutic tomorrow likely be discharged tomorrow in the afternoon -No more pleuritic chest pain and no shortness of breath and has been ambulating without any difficulties -INR is 1.7 and likely discharge tomorrow when INR is expected to be 2.5 (2) SOB (shortness of breath): Plan: Remains minimally shortness of breath with pleuritic chest pain involving the left lower lateral chest wall No shortness of breath at rest or with minimal exertion (3) Hepatitis C: Plan: - Hx of such from 2014 - outpt epic result reviewed showing HCV Ab reactive and ratio of 21.30 --- consider adding Hep C Ab while here to test - discussed following up with PCP or hepatology as outpatient after her acute hospital stay - pt is in agreement - Pt had HIV ag/Ab screen on 03/04/20 which was negative - hx of IVDA with heroin, clean for 2 years and is currently on Subutex 8 mg BID and splits this up to being 4 mg QID. - Will ask pharmacy to verify med. PDMP reviewed by myself. (4) Hypertension: Plan: - No longer on antihypertensive medication - discussed weight loss and diet at bedside - BP is fluctuating but has a small cuff on her forearm. -Blood pressure remains stable (5) Depression: Plan: - Pt is not longer on antidepressant medication (6) Wheezing: Plan: - hx of seasonal allergies, continue supportive care if needed DVT ppx: heparin gtt CODE: Full code Dispo:Home (7) Morbid obesity: Admission and Anticipated Discharge Date Admission Date: January 16, 2023 Subjective 01/17/2023 The patient was seen and examined in telemetry unit She was admitted with bilateral pulmonary embolism which was unprovoked with a strong family history of clot She denies any symptoms and has been feeling a lot better 01/18/2023 The patient was seen and examined in telemetry unit She has been complaining of pain with deep breathing especially on the left lateral chest wall Complains of headache as well Trying to ambulate in the room 01/19/2023 The patient was seen and examined in telemetry unit She does not have any more pain today with breathing She denies any shortness of breath at rest or with exertion Her INR is 1.1 today 01/20/2023 The patient was seen and examined in telemetry unit She has been feeling much better and denies any pleuritic pain No shortness of breath with exertion INR is 1.3 today 01/21/2023 The patient was seen and examined in telemetry unit She has been feeling much better today Denies any chest pain with breathing or any shortness of breath No other symptoms Review of Systems Review of Systems: All systems reviewed and are unremarkable except as noted below Respiratory: No respiratory symptoms Cardiovascular: Additional Comments: No chest pain and her palpitation Physical Exam Physical Exam: Sitting at the edge of the bed without any acute distress Constitutional: well developed, well nourished and + morbidly obese; not ill appearing Eyes: PERRL, conjunctivae normal, anicteric sclerae ENMT: external ear and nose normal, oropharynx normal Neck: trachea midline, no thyromegaly Respiratory: no respiratory distress Auscultation: + diminished lung sounds; no crackles (Minimal crackles at the bases) Cardiovascular: Rate/Rhythm: regular rate, regular rhythm and + bradycardic Heart Sounds: normal S1 and normal S2; no murmur Extremities: + edema (Trace edema bilaterally) Gastrointestinal (Abdomen): Inspection/Auscultation: + abdomen distended and normal bowel sounds Percussion/Palpation: abdomen soft; abdomen nontender Musculoskeletal: No acute arthritis involving any joint Neurologic: Alert, awake and oriented x3. No focal sensory or motor deficit appreciated Psychiatric: A+Ox3, euthymic affect Results & Data Results & Data Vital Signs (Past 12 Hours) Vital Signs Temp Pulse Resp BP Pulse Ox O2 Del Method 01/21/23 11:56 36.7 C 62 20 148/95 H 96 Room Air 01/21/23 07:56 Room Air 01/21/23 07:31 36.7 C 56 L 18 129/84 99 Room Air 01/21/23 03:43 36.5 C 59 L 18 112/70 95 Room Air Medications Administered Current Inpatient Medications Acetaminophen (Acetaminophen 325 Mg Tab) 650 mg PO Q4H PRN PRN Reason: Moderate Pain (Scale 4, 5, 6) Stop: 02/15/23 15:56 Last Admin: 01/20/23 21:01 Dose: 650 mg Buprenorphine HCl (Buprenorphine Hcl 8 Mg Subl) 4 mg SL QID [facility] Stop: 02/15/23 20:59 Last Admin: 01/21/23 13:23 Dose: 4 mg Heparin Sodium/Dextrose (Heparin Sodium/Dextrose) 25,000 units in 500 mls @ 46 mls/hr IV .[id number] [facility]; Protocol Stop: 02/15/23 13:44 Last Admin: 01/21/23 07:11 Dose: Not Given Ketorolac Tromethamine (Ketorolac Tromethamine 15 Mg/Ml Vial) 15 mg IV Q6H PRN PRN Reason: Pain Stop: 01/21/23 17:19 Last Admin: 01/17/23 01:06 Dose: 15 mg Ondansetron HCl (Ondansetron Inj 2 Mg/Ml 2 Ml Vial) 4 mg IV Q4H PRN PRN Reason: Nausea And Vomiting Stop: 02/15/23 15:56 Warfarin Sodium (Warfarin Sod 10 Mg Tab) 10 mg PO DAILY@1600 [facility] Stop: 02/19/23 15:59 Last Admin: 01/20/23 17:11 Dose: 10 mg (1) Pulmonary emboli Acute cor pulmonale presence: with acute cor pulmonale Chronicity: acute Pulmonary embolism type: unspecified Qualified Code(s): I26.09 - Other pulmonary embolism with acute cor pulmonale
[2023-01-21] MEDS: WARFARIN SOD 10 MG TAB PO SCH (17:08)
[2023-01-21 20:34] LABS: Partial Thromboplastin Ratio 2.6
[2023-01-21 21:01] LABS: Partial Thromboplastin Time 73.2 Seconds (21.0-31.0)
[2023-01-22] MEDS: HEPARIN SODIUM/DEXTROSE 25,000 UNITS/500 ML BAG IV SCH ×3 (04:18→07:47)
[2023-01-22 05:34] LABS: INR 2.2 (0.9-1.1); Partial Thromboplastin Ratio 3.2; Prothrombin Time 22.6 Seconds (9.0-12.0)
[2023-01-22] MEDS: buprenorphine HCL 8 MG SUBL SL SCH ×2 (08:06→12:48)
--- NOTE | 2023-01-22 12:50 | Hospitalist Progress Note ---
Date of Service January 22, 2023 Assessment & Plan (1) Pulmonary emboli: Plan: -Continue on heparin drip, low dose bolus for now - consider transition to DOAC tomorrow -Doppler ultrasound bilat LE ordered-no DVT, specifically noted swelling and hx of pain in the left lower extremity -CT of the chest has been reviewed showing segmental and subsegmental PE bilaterally -Right-sided heart strain to be evaluated with echo-LV systolic function is normal, EF 60 to 65%, RV is normal in size, right ventricular systolic function is normal and no significant valvular pathology -Consult pulm for heavy clot burden-appreciate input and recommendation -Discussed with the process plant operator and will start on Coumadin -Hypercoagulable work-up have been sent -We will continue with intravenous heparin and oral Coumadin for now -She is not yet ready to be discharged likely to have heparin and Coumadin over the weekend and plan to discharge on Saturday/Saturday -No more pleuritic chest pain and no shortness of breath with activity -We will continue the current medications including Coumadin 7.5 mg tonight -Likely discharge Saturday or Saturday -Remains asymptomatic and she has been ambulating in the room without any difficulties and no more pleuritic chest pain -INR 1.3 and will increase Coumadin to 10 mg today if the INR is therapeutic tomorrow likely be discharged tomorrow in the afternoon -No more pleuritic chest pain and no shortness of breath and has been ambulating without any difficulties -INR is 1.7 and likely discharge tomorrow when INR is expected to be 2.5 -INR is 2.2 today and will discharge her on Coumadin 7.5 mg daily with an appointment with coagulation clinic in 2 days -She will be discharged this afternoon and will have PCP and oncology follow-up down the line (2) SOB (shortness of breath): Plan: Remains minimally shortness of breath with pleuritic chest pain involving the left lower lateral chest wall No shortness of breath at rest or with minimal exertion (3) Hepatitis C: Plan: - Hx of such from 2014 - outpt epic result reviewed showing HCV Ab reactive and ratio of 21.30 --- consider adding Hep C Ab while here to test - discussed following up with PCP or hepatology as outpatient after her acute hospital stay - pt is in agreement - Pt had HIV ag/Ab screen on 03/04/20 which was negative - hx of IVDA with heroin, clean for 2 years and is currently on Subutex 8 mg BID and splits this up to being 4 mg QID. - Will ask pharmacy to verify med. PDMP reviewed by myself. (4) Hypertension: Plan: - No longer on antihypertensive medication - discussed weight loss and diet at bedside - BP is fluctuating but has a small cuff on her forearm. -Blood pressure remains stable -No change in her blood pressure medications (5) Depression: Plan: - Pt is not longer on antidepressant medication (6) Wheezing: Plan: - hx of seasonal allergies, continue supportive care if needed DVT ppx: heparin gtt CODE: Full code Dispo:Home (7) Morbid obesity: Admission and Anticipated Discharge Date Admission Date: January 16, 2023 Subjective 01/17/2023 The patient was seen and examined in telemetry unit She was admitted with bilateral pulmonary embolism which was unprovoked with a strong family history of clot She denies any symptoms and has been feeling a lot better 01/18/2023 The patient was seen and examined in telemetry unit She has been complaining of pain with deep breathing especially on the left lateral chest wall Complains of headache as well Trying to ambulate in the room 01/19/2023 The patient was seen and examined in telemetry unit She does not have any more pain today with breathing She denies any shortness of breath at rest or with exertion Her INR is 1.1 today 01/20/2023 The patient was seen and examined in telemetry unit She has been feeling much better and denies any pleuritic pain No shortness of breath with exertion INR is 1.3 today 01/21/2023 The patient was seen and examined in telemetry unit She has been feeling much better today Denies any chest pain with breathing or any shortness of breath No other symptoms 01/22/2023 The patient was seen and examined in telemetry unit She has been feeling much better ready to go home Denies any symptoms and has been ambulating in the room without any difficulties Review of Systems Review of Systems: All systems reviewed and are unremarkable except as noted below Respiratory: No respiratory symptoms Cardiovascular: Additional Comments: No chest pain and her palpitation Physical Exam Physical Exam: Sitting at the edge of the bed without any acute distress Constitutional: well developed, well nourished and + morbidly obese; not ill appearing Eyes: PERRL, conjunctivae normal, anicteric sclerae ENMT: external ear and nose normal, oropharynx normal Neck: trachea midline, no thyromegaly Respiratory: no respiratory distress Auscultation: + diminished lung sounds; no crackles (Minimal crackles at the bases) Cardiovascular: Rate/Rhythm: regular rate, regular rhythm and + bradycardic Heart Sounds: normal S1 and normal S2; no murmur Extremities: + edema (Trace edema bilaterally) Gastrointestinal (Abdomen): Inspection/Auscultation: + abdomen distended and normal bowel sounds Percussion/Palpation: abdomen soft; abdomen nontender Musculoskeletal: No acute arthritis involving any joint Neurologic: Alert, awake and oriented x3. No focal sensory or motor deficit appreciated Psychiatric: A+Ox3, euthymic affect Results & Data Results & Data Vital Signs (Past 12 Hours) Vital Signs Temp Pulse Pulse Resp BP Pulse Ox O2 Del Method 01/22/23 12:00 36.5 C 61 18 158/88 H 97 Room Air 01/22/23 11:45 Room Air 01/22/23 08:00 36.8 C 121 H 18 107/52 L 97 Room Air 01/22/23 08:11 62 01/22/23 03:25 36.7 C 60 16 122/80 98 Room Air Medications Administered Current Inpatient Medications Acetaminophen (Acetaminophen 325 Mg Tab) 650 mg PO Q4H PRN PRN Reason: Moderate Pain (Scale 4, 5, 6) Stop: 02/15/23 15:56 Last Admin: 01/20/23 21:01 Dose: 650 mg Buprenorphine HCl (Buprenorphine Hcl 8 Mg Subl) 4 mg SL QID [facility] Stop: 02/15/23 20:59 Last Admin: 01/22/23 12:48 Dose: 4 mg Heparin Sodium/Dextrose (Heparin Sodium/Dextrose) 25,000 units in 500 mls @ 40 mls/hr IV .[id number] [facility]; Protocol Stop: 02/15/23 13:44 Last Admin: 01/22/23 07:47 Dose: Not Given Ondansetron HCl (Ondansetron Inj 2 Mg/Ml 2 Ml Vial) 4 mg IV Q4H PRN PRN Reason: Nausea And Vomiting Stop: 02/15/23 15:56 Warfarin Sodium (Warfarin Sod 10 Mg Tab) 10 mg PO DAILY@1600 [facility] Stop: 02/19/23 15:59 Last Admin: 01/21/23 17:08 Dose: 10 mg (1) Pulmonary emboli Acute cor pulmonale presence: with acute cor pulmonale Chronicity: acute Pulmonary embolism type: unspecified Qualified Code(s): I26.09 - Other pulmonary embolism with acute cor pulmonale
[2023-01-22 14:10] LABS: Partial Thromboplastin Ratio 2.3
[2023-01-22 14:18] LABS: Partial Thromboplastin Time 64.5 Seconds (21.0-31.0)
== END 2023-01-22 14:15 | disposition home or self-care (01) | DRG 175 ==
LOC: ED 10:18 → SUATTDRO 13:49 → 2S 13:49